=== PATIENT | female | born 1995 | race American Indian/Alaskan Native ===

== ENCOUNTER 2018-07-25 13:03 | Emergency (ER) | payer SELFPAY ==
[2018-07-25 13:45] VITALS: BP 105/57
--- NOTE | 2018-07-25 14:36 | Emergency Department Report ---
ED HPI - General Chief complaint: Urogenital-Female Stated complaint: LOWER BACK/LEG PAIN Time Seen by Provider: 07/25/18 14:12 Source: patient Mode of arrival: Ambulatory Limitations: No Limitations - History of Present Illness Initial comments: This is a 23-year-old female nontoxic, well nourished in appearance, no acute signs of distress presents to the ED with c/o of vaginal bleeding x1 day. Patient stated yesterday she noticed some spotting this morning x3 occasions and primarily only when she wipes after the restroom. Patient denies any abdominal or pelvic pain. Patient also stated has some vaginal irritation. Patient denies any vaginal discharge or foul odor. Patient denies any nausea, vomiting, chest pain, shortness of breathe, fever, chills, headache, stiff neck , numbness, tingling. Patient denies any urinary symptoms. Patient denies any allergies or PMH. MD Complaint: vaginal bleeding -: days(s) (1) Radiation: none Severity scale (0 -10): 0 Improves with: none Worsens with: none Associated symptoms: vaginal bleeding. denies: nausea/vomiting, vaginal discharge, abdominal pain, dysuria, headache, vision changes, malaise, dysparuenia, rash, seizure, shortness of breath, syncope, weakness Vaginal bleeding: light Pre-thiago care: none - Related Data Previous Rx's Medication Instructions Recorded Last Taken Type metroNIDAZOLE [Flagyl] 500 mg PO Q12HR #14 tab 07/25/18 Unknown Rx Allergies Allergy/AdvReac Type Severity Reaction Status Date / Time No Known Allergies Allergy Verified 07/25/18 13:41 ED Review of Systems ROS: Stated complaint: LOWER BACK/LEG PAIN Other details as noted in HPI Constitutional: denies: chills, fever Eyes: denies: eye pain, eye discharge, vision change ENT: denies: ear pain, throat pain Respiratory: denies: cough, shortness of breath, wheezing Cardiovascular: denies: chest pain, palpitations Endocrine: no symptoms reported Gastrointestinal: denies: abdominal pain, nausea, diarrhea Genitourinary: abnormal menses. denies: urgency, dysuria, discharge Musculoskeletal: denies: back pain, joint swelling, arthralgia Skin: denies: rash, lesions Neurological: denies: headache, weakness, paresthesias Psychiatric: denies: anxiety, depression Hematological/Lymphatic: denies: easy bleeding, easy bruising ED Past Medical Hx - Past Medical History Hx Seizures: Yes - Surgical History Past Surgical History?: No - Social History Smoking Status: Never Smoker Substance Use Type: None - Medications Home Medications: Home Medications Medication Instructions Recorded Confirmed Last Taken Type metroNIDAZOLE [Flagyl] 500 mg PO Q12HR #14 tab 07/25/18 Unknown Rx ED Physical Exam - General Limitations: No Limitations General appearance: alert, in no apparent distress - Head Head exam: Present: atraumatic, normocephalic - Eye Eye exam: Present: normal appearance - ENT ENT exam: Present: mucous membranes moist - Neck Neck exam: Present: normal inspection, full ROM. Absent: tenderness, meningismus - Respiratory Respiratory exam: Present: normal lung sounds bilaterally. Absent: respiratory distress, wheezes, rales, rhonchi, stridor, chest wall tenderness, accessory muscle use, decreased breath sounds, prolonged expiratory - Cardiovascular Cardiovascular Exam: Present: regular rate, normal rhythm, normal heart sounds. Absent: bradycardia, tachycardia, irregular rhythm, systolic murmur, diastolic murmur, rubs, gallop - GI/Abdominal GI/Abdominal exam: Present: soft, normal bowel sounds. Absent: distended, tenderness, guarding, rebound, rigid, diminished bowel sounds - External exam: Present: normal external exam, other (type photography supervisor Katlyn photo manager present on exam). Absent: erythema, swelling, lesions, lacerations, ecchymosis, bleeding Speculum exam: Present: normal speculum exam, other (OS closed. type photography supervisor Katlyn photo manager present on exam). Absent: erythema, vaginal discharge, cervical discharge, vaginal bleeding, foreign body, tissue, laceration Bi-manual exam: Present: normal bi-manual exam, other (type photography supervisor Katlyn photo manager present on exam). Absent: cervical motion tendernes, adnexal tenderness, adnexal mass, uterine enlargement, uterine tenderness - Extremities Exam Extremities exam: Present: normal inspection, full ROM, normal capillary refill. Absent: tenderness - Back Exam Back exam: Present: normal inspection, full ROM. Absent: tenderness, CVA tenderness (R), CVA tenderness (L), muscle spasm, paraspinal tenderness, vertebral tenderness - Neurological Exam Neurological exam: Present: alert, oriented X3 - Psychiatric Psychiatric exam: Present: normal affect, normal mood - Skin Skin exam: Present: warm, dry, intact, normal color. Absent: rash ED Course Vital Signs 07/25/18 13:41 Temperature 98.4 F Pulse Rate 80 Respiratory 16 Rate Blood Pressure 105/57 O2 Sat by Pulse 96 Oximetry - Reevaluation(s) Reevaluation #1: 07/25/18 14:39 Patient is speaking in full sentences with no signs of distress noted. ED Medical Decision Making - Lab Data Result diagrams: 07/25/18 14:31 - Medical Decision Making This is a 23-year-old female presents with threatened miscarriage and BV. Patient is stable and was examined by me. Normal abdominal exam. US OB obtained and dictated by the radiologist. Ua obtained. Quantative serum test obtained. Patient notified of the US report with no questions noted by the patient. RH factor positive. Labs within normal limits. Patient was referred to Follow-up with a HOME STEREO EQUIPMENT INSTALLER in 3-5 days or if symptoms worsen and continue return to emergency room as soon as possible. At time of discharge, the patient does not seem toxic or ill in appearance. No acute signs of distress noted. Patient agrees to discharge treatment plan of care. No further questions noted by the patient. Critical care attestation.: If time is entered above; I have spent that time in minutes in the direct care of this critically ill patient, excluding procedure time. ED Disposition Clinical Impression: Bacterial vaginosis, Threatened miscarriage Disposition: DC-01 TO HOME OR SELFCARE Is pt being admited?: No Does the pt Need Aspirin: No Condition: Stable Instructions: Bacterial Vaginosis (ED), Threatened Miscarriage (ED), Metronidazole (By mouth) Additional Instructions: Follow-up with a HOME STEREO EQUIPMENT INSTALLER doctor in 3-5 days or if symptoms worsen and continue return to emergency room as soon as possible. Prescriptions: metroNIDAZOLE [Flagyl] 500 mg PO Q12HR #14 tab Referrals: PRIMARY CARE, [Primary Care Provider] - 3-5 Days Forms: Work/School Release Form(ED)
[2018-07-25 14:43] LABS: Basophils % (Auto) 0.6 % (0.0-1.8); Eosinophils # (Auto) 0.2 K/mm3 (0.0-0.4); Eosinophils % (Auto) 2.1 % (0.0-4.3); Hematocrit 37.3 % (30.3-42.9); Hemoglobin 12.4 gm/dl (10.1-14.3); Lymphocytes # (Auto) 2.5 K/mm3 (1.2-5.4); Lymphocytes % (Auto) 31.4 % (13.4-35.0); Mean Corpuscular HGB Conc 33 % (30-34); Mean Corpuscular Hemoglobin 32 pg (28-32); Mean Corpuscular Volume 96 fl (79-97); Monocytes # (Auto) 0.5 K/mm3 (0.0-0.8); Monocytes % (Auto) 5.7 % (0.0-7.3); Platelet Count 295 K/mm3 (140-440); Red Blood Count 3.88 M/mm3 (3.65-5.03); Red Cell Distribution Width 13.7 % (13.2-15.2)
[2018-07-25 15:50] LABS: Bacteria,Urine 1+ /HPF (Negative); Bilirubin,Urine NEG (Negative); Blood,Urine NEG (Negative); Color,Urine Yellow (Yellow); Mucus,Urine 3+ /HPF
--- NOTE | 2018-07-25 16:50 | Ultrasound Report ---
FINAL REPORT EXAM: US OB < = 14 WEEKS FETUS HISTORY: vaginal bleeding COMPARISON: None. TECHNIQUE: Transabdominal obstetric imaging was performed FINDINGS: The uterus measures 11 x 6.1 x 6.8 centimeters. There is a single live intrauterine with with heart rate of 159 beats per minute. There is a normal appearing yolk sac dot, gestational sac, and pole. The crown-rump length is 13.7 millimeters, corresponding to a gestational age of 7 weeks, 5 days, with estimated date of delivery of 03/08/2019. There is a small to moderate subchorionic hemorrhage that measures approximately 1.2 x 0.8 x 1.5 centimeters. The right ovary measures 3.1 x 2.1 x 3.6 centimeters. There is a mildly complex within the right ovary that measures 1.3 centimeters with a single internal septation. The left ovary measures 2.4 x 1.1 x 1.9 centimeters dot IMPRESSION: Single live intrauterine with gestational age of 7 weeks, 5 days, with estimated date of delivery of 03/08/2019. Small to moderate subchorionic hemorrhage. Mildly complex cyst within the right ovary with a single internal septation. Findings may represent hemorrhagic cyst.
--- NOTE | 2018-07-25 16:51 | Ultrasound Report ---
FINAL REPORT EXAM: US OB TRANSVAGINAL HISTORY: vaginal bleeding COMPARISON: None. TECHNIQUE: Transvaginal obstetric imaging of the pelvis was performed FINDINGS: The uterus measures 11 x 6.1 x 6.8 centimeters. There is a single live intrauterine with with heart rate of 159 beats per minute. There is a normal appearing yolk sac dot, gestational sac, and pole. The crown-rump length is 13.7 millimeters, corresponding to a gestational age of 7 weeks, 5 days, with estimated date of delivery of 03/08/2019. There is a small to moderate subchorionic hemorrhage that measures approximately 1.2 x 0.8 x 1.5 centimeters. The right ovary measures 3.1 x 2.1 x 3.6 centimeters. There is a mildly complex within the right ovary that measures 1.3 centimeters with a single internal septation. The left ovary measures 2.4 x 1.1 x 1.9 centimeters. IMPRESSION: Single live intrauterine with gestational age of 7 weeks, 5 days, with estimated date of delivery of 03/08/2019. Small to moderate subchorionic hemorrhage. Mildly complex cyst within the right ovary with a single internal septation. Findings may represent hemorrhagic cyst.
== END 2018-07-25 17:07 | disposition home or self-care (01) ==
LOC: ED 13:03
DX: O20.0 Threatened abortion (principal); O23.591 Infection of other part of genital tract in pregnancy, first trimester; B96.89 Other specified bacterial agents as the cause of diseases classified elsewhere; Z3A.01 Less than 8 weeks gestation of pregnancy
CPT/HCPCS: 36415; 76801; 76817; 81001; 84702; 85025; 86850; 86900; 86901; 87210; 99284

== ENCOUNTER 2018-12-07 16:25 | Outpatient (CLI) | payer OTHER ==
[2018-12-07] MEDS ORDERED: LACTATED RINGERS 500 ML IV ONE (16:54)
[2018-12-07 19:12] VITALS: BP 99/57
[2018-12-07 19:20] LABS: Bacteria,Urine 1+ /HPF (Negative); Bilirubin,Urine NEG (Negative); Blood,Urine MOD (Negative); Color,Urine Yellow (Yellow); Mucus,Urine 2+ /HPF; Protein,Urine <15 mg/dL mg/dL (Negative)
[2018-12-07] MEDS ORDERED: ROCEPHIN/NS 1 GM/50 ML 1 GM/50 ML BAG IV ONE (21:39)
[2018-12-07] MEDS ORDERED: LACTATED RINGERS 1,000 ML ONE (21:51)
--- NOTE | 2018-12-07 22:51 | Ultrasound Report ---
FINAL REPORT PROCEDURE: US OB LIMITED TECHNIQUE: Real-time limited sonographic examination was performed for evaluation of position and amniotic fluid index for each fetus with image documentation (1 or more fetuses). CPT 16723 HISTORY: variable COMPARISON: No prior studies are available for comparison. FINDINGS: There is a single living intrauterine gestation currently in the breech presentation with heart rate of 154 beats per minute. Subjectively the amount of amniotic fluid appears increased. The amnio tic fluid index is also increased measuring 33.4 centimeters. Detailed exam of the anatomy was not performed as this was not requested. No gross abnormalities were identified on the images provide d. Cervix length was not measured. IMPRESSION: Limited study shows single living intrauterine gestation breech presentation. There is evidence of po lyhydramnios. Further evaluation was neither requested nor performed.
--- NOTE | 2018-12-08 00:50 | Progress Note ---
Assessment and Plan A: at 26 weeks, 6 days gestation. Moderate polyhydramnios. Common cold likely (flu swab negative). UTI. Blood glucose 99. P: IV Rocephin given. Rx Macrobid 100 mg po BID x 7 days. Discussed polyhydramnios with patient, need to follow up with [facility] (pt. already sees them due to history of epilepsy); advised pt. to go to [facility] this week and obtain referral to [facility] for polyhydramnios. Advised pt. to avoid sodas, sweet tea, sugary foods. Disussed with pt. possible side effects of medication. Warning signs discussed with pt. Discussed OTC medications that she can take for common cold symptom relief. Comfort measures discussed. Pt. voiced understanding of all instructions. Subjective - Subjective Date of service: 12/07/18 Principal diagnosis: at 26 weeks, 6 days gestation; cold Interval history: 23 year old presents to L&D triage at 26 weeks, 6 days gestation complaining of cold symptoms for past 2 days. Patient denies fever, chills, body aches, or sore throat. She does report nasal discharge, nose bleed, cough. Patient reports round ligament pain when standing and walking; states pain resolves when she lies down. Patient denies contractions, leaking of fluid, or vaginal bleeding. She denies falls or abdominal trauma. Patient reports active movement. She does report urinary frequency and low back ache. She denies flank pain. Patient reports: movement normal, no loss of fluid, no vaginal bleeding, no contractions Objective - Vital Signs Vital Signs: Vital Signs - 12hr 12/07/18 12/07/18 12/07/18 16:52 16:58 19:12 Temperature 98.6 F Pulse Rate 82 82 87 Respiratory 20 Rate Blood Pressure 101/59 99/57 Blood Pressure 101/59 [Left] - Exam Narrative Exam: KATHIE 33.4 cm on US. Abdomen: Present: normal appearance, soft. Absent: distention, tenderness, guarding, rigidity Uterus: Present: fundal height above umbilicus. Absent: tenderness FHR: other (AGA, a few variable FHR decelerations noted) Uterine Contraction Monitor Mode: External Uterine Contraction Pattern: Absent Extremities: normal - Labs Labs: Laboratory Results - last 24 hr 12/07/18 12/07/18 17:40 18:00 Urine Color Yellow Urine Turbidity Clear Urine pH 6.0 Ur Specific [place] 1.024 Urine Protein <15 mg/dl Urine Glucose (UA) Neg Urine Ketones Neg Urine Blood Mod Urine Nitrite Neg Urine Bilirubin Neg Urine Urobilinogen 4.0 Ur Leukocyte Esterase Tr Urine WBC (Auto) 5.0 Urine RBC (Auto) 2.0 U Epithel Cells (Auto) 4.0 Urine Bacteria (Auto) 1+ Urine Mucus 2+ Influenza A (Rapid) Negative Influenza B (Rapid) Negative
== END 2018-12-07 23:00 | disposition home or self-care (01) ==
LOC: TRG 16:25
PROVIDERS: ATTEND Obstetrics & Gynecology
DX: O21.2 Late vomiting of pregnancy (principal); O32.1XX0 Maternal care for breech presentation, not applicable or unspecified; O40.2XX0 Polyhydramnios, second trimester, not applicable or unspecified; O99.512 Diseases of the respiratory system complicating pregnancy, second trimester; J00 Acute nasopharyngitis [common cold]; O26.892 Other specified pregnancy related conditions, second trimester; R04.0 Epistaxis; R10.9 Unspecified abdominal pain; Z3A.26 26 weeks gestation of pregnancy
CPT/HCPCS: 76815; 81001; 82962; 87400; 96365; J0696; J7120; 96360

== ENCOUNTER 2019-02-21 01:21 | Inpatient (IN) | payer OTHER ==
[2019-02-21] MEDS ORDERED: LACTATED RINGERS 1,000 ML ONE (04:16)
[2019-02-21 10:00] LABS: Hematocrit 44.9 % (30.3-42.9); Hemoglobin 14.9 gm/dl (10.1-14.3); Mean Corpuscular HGB Conc 33 % (30-34); Mean Corpuscular Volume 98 fl (79-97); Platelet Count 173 K/mm3 (140-440); Red Blood Count 4.58 M/mm3 (3.65-5.03); Red Cell Distribution Width 13.9 % (13.2-15.2)
[2019-02-21] MEDS ORDERED: SUBLIMAZE IV PRN (10:50)
[2019-02-21] MEDS ORDERED: BRETHINE SUB-Q PRN (10:50)
[2019-02-21] MEDS ORDERED: BRETHINE IVP PRN (10:50)
[2019-02-21] MEDS ORDERED: XYLOCAINE 2% INFILTRATI ONE (10:50)
[2019-02-21] MEDS ORDERED: ZOFRAN IV PRN (10:50)
[2019-02-21] MEDS ORDERED: NARCAN 0.4 MG/1 ML IV PRN (10:50)
[2019-02-21] MEDS ORDERED: PITOCin/NS 20 UNIT/1000ML DRIP 20 UNITS/1,000 ML BAG IV SCH (11:00)
--- NOTE | 2019-02-21 11:15 | History and Physical Report ---
History of Present Illness Date of examination: 02/21/19 Date of admission: 02/21/19 05:32 Chief complaint: Intense contractions History of present illness: 24yo AA Fe , TYREL 03/10/2019 (LMP), 37 weeks 4days, presents with intense labor pains. Pt initiated care with [facility] Le[facility] Inspector at 13+ weeks gestation. Co- managed with [facility] d/t known Hx Epilepsy, no current meds, last seizure 10/18/18. Pt didn't keep Neuro consult "d/t insurance." otherwise complicated with Vitamin D Deficiency (D3 supplementation), LSIL PAP (plan to repeat PP), U TI (SELVIN Neg 01/04/19), Polyhydramnios 01/15 26cm). labs: A positive, Rubella Immune, VDRL Non-reactive, HBsAg Negative, HIV Negative, GC/CL/Trich Negative, GBS Negative. 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 denies: chlamydia, gonorrhea, hepatitis B, hepatitis C, herpes, HIV, syphilis, trichomonas Family/Genetic History: heart disease, hypertension Social history: single, lives with family, full code. denies: smoking, alcohol abuse, prescription drug abuse, IV drug use - Obstetrical History Expected Date of Delivery: 03/10/19 Actual Gestation: 37 Week(s) 4 Day(s) : 3 Para: 1 Hx # Term Pregnancies: 1 Number of Pregnancies: 0 Spontaneous Abortions: 0 Induced : 1 Number of Living Children: 1 #1 Gender: Female year: 2[age][birth year] Birthweight: 3.459 kg Method of Delivery: Vaginal Gestational age at delivery: 40 Complications: none Medications and Allergies Allergies Allergy/AdvReac Type Severity Reaction Status Date / Time pineapple AdvReac Itching Verified 08/03/18 08:33 Home Medications Medication Instructions Recorded Confirmed Last Taken Type Folic Acid [Folvite] 1 mg PO QDAY #30 tablet 10/18/18 02/21/19 Unknown Rx Review of Systems Eyes: normal appearance Cardiovascular: no chest pain, no shortness of breath Respiratory: no shortness of breath Breasts: normal Gastrointestinal: no nausea, no vomiting, no diarrhea, no constipation Genitourinary: normal appearance, contractions, no vaginal bleeding, no leakage of fluid, no genital sores Integumentary: no rash, no sores, no lesions - Vital Signs Vital signs: Vital Signs Temp Resp 98.6 F 20 02/21/19 04:01 02/21/19 04:01 Temp Pulse Resp BP Pulse Ox 98.4 F 89 18 110/59 97 02/21/19 08:16 02/21/19 10:44 02/21/19 06:30 02/21/19 10:44 02/21/19 06:30 - Physical Exam Breasts: Positive: normal Cardiovascular: Regular rate, Normal S1, Normal S2, No murmurs Lungs: Positive: Clear to auscultation, Normal air movement Abdomen: Positive: normal appearance, soft, normal bowel sounds. Negative: distention, tenderness Genitourinary (Female): Positive: normal external genitalia, normal perenium Vulva: both: normal Vagina: Positive: normal moisture Uterus: Positive: enlarged (Gravid) Anus/Rectum: Positive: normal perianal skin Extremities: Positive: normal Deep Tendon Reflex Grade: Normal +2 - Obstetrical FHR: category 1 Uterine Contraction Monitor Mode: External Cervical Dilatation: 5 (AROM small amt clear fluid with exam) Cervical Effacement Percentage: 75 station: -2 Uterine Tone Measurement Phase: Resting Uterine Contraction Intensity: Moderate Results Result Diagrams: 02/21/19 Unknown Abnormal lab results 02/21/19 Range/Units Unknown Hgb 14.9 H (10.1-14.3) gm/dl Hct 44.9 H (30.3-42.9) % MCV 98 H (79-97) fl MCH 33 H (28-32) pg All other labs normal. Assessment and Plan A: IUP at 37w4d Category 1 tracing GBS Negative Advanced dilatation P: Admit to L&D; Routine labor orders Pitocin augmentation May have IV pain med/epidural PRN Anticipate
[2019-02-21] MEDS: LACTATED RINGERS 1,000 ML IV SCH ×3 (11:25→16:39)
[2019-02-21] MEDS: PITOCin/NS 30 UNIT/500ML 30 UNITS/500 ML BAG IV SCH ×2 (11:28→12:52)
[2019-02-21 11:33] LABS: Anisocytosis 1+; Band Neutrophils # (Manual) 0.1 K/mm3; Burr Cells 3+; Platelet Estimate Consistent w Auto; Poikilocytosis 3+; Total Cells Counted 100
--- NOTE | 2019-02-21 15:41 | Anesthesia Consultation ---
Anesthesia Consult and Med Hx - Airway Anesthetic Teeth Evaluation: Good ROM Head & Neck: Adequate Mental/Hyoid Distance: Adequate Mallampati Class: Class I Intubation Access Assessment: Good - Pulmonary Exam CTA: Yes - Cardiac Exam Cardiac Exam: RRR - Pre-Operative Health Status ASA Pre-Surgery Classification: ASA2 Proposed Anesthetic Plan: Epidural - Pulmonary Hx Smoking: No Hx Asthma: No COPD: No Hx Pneumonia: No - Cardiovascular System Hx Hypertension: No - Central Nervous System Hx Seizures: Yes (epilepsy October 18) Hx Psychiatric Problems: No - Endocrine Hx Renal Disease: No Hx End Stage Renal Disease: No Hx Hypothyroidism: No Hx Hyperthyroidism: No - Hematic Hx Anemia: No Hx Sickle Cell Disease: No - Other Systems Hx Alcohol Use: Yes (social drinker not when preg)
[2019-02-21] MEDS ORDERED: NARCAN 2 MG/2 ML IV PRN (15:42)
--- NOTE | 2019-02-21 15:42 | Anesthesia Day of Surgery ---
Anesthesia Day of Surgery - Day of Surgery Patient Examined: Yes Patient H&P Reviewed: Yes Patient is NPO: Yes Beta Blockers: No Cardiac Clearance: No Pulmonary Clearance: No Rashawn's Test: N/A
[2019-02-21] MEDS ORDERED: MARCAINE 0.25% INFILTRATI ONE (15:46)
[2019-02-21] MEDS ORDERED: fentaNYL-BUPIV 2 MCG/ML-0.125% 200 MCG/100 ML BAG EPIDURAL SCH (16:00)
[2019-02-21] MEDS ORDERED: NACL 0.9% 1000 ML 1,000 ML ONE (17:31)
--- NOTE | 2019-02-21 17:36 | Progress Note ---
Assessment and Plan A: IUP at 37w4d GBS Negative Category 2 tracing; Repetitive variables Pitocin off Comfortable with epidural Minimal change in cervix since am OP and asynclitic presentation Dysfunctional uterine contraction pattern P: Continue routine labor orders Amnio Infusion Notify Dr. Katherine MD of POC Explained to pt and her family: Minimal cervical change with reoccurring variables and dysfunctional contractions. Will attempt amnio infusion to resolve variables and be able to resume pitocin. If baby doesn't tolerate then she will need a primary section. Pt and family verbalize understanding and are agreeable to POC. Subjective - Subjective Date of service: 02/21/19 (17:17) Principal diagnosis: Active labor Interval history: 24yo AA Fe , TYERL 03/10/2019 (LMP), 37 weeks 4days, presents with intense labor pains. Pt initiated care with [facility] [employer] [facility] at 13+ weeks gestation. Co- managed with [facility] d/t known Hx Epilepsy, no current meds, last seizure 10/18/18. Pt didn't keep Neuro consult "d/t insurance." otherwise complicated with Vitamin D Deficiency (D3 supplementation), LSIL PAP (plan to repeat PP), UTI (SELVIN Neg 01/04/19), Polyhydramnios 01/15 26cm). labs: A positive, Rubella Immune, VDRL Non-reactive, HBsAg Negative, HIV Negative, GC/CL/Trich Negative, GBS Negative. Patient reports: loss of fluid, movement normal, other (comfortable with epidural) Objective - Vital Signs Vital Signs: Vital Signs - 12hr 02/21/19 02/21/19 02/21/19 06:30 08:14 08:16 Temperature 97.3 F L 98.4 F Pulse Rate 113 H 80 Respiratory 18 Rate Blood Pressure 183/125 82/46 Blood Pressure 104/58 [Right] O2 Sat by Pulse 97 Oximetry 02/21/19 02/21/19 02/21/19 10:44 12:15 12:44 Temperature Pulse Rate 89 75 108 H Respiratory Rate Blood Pressure 110/59 88/49 98/55 Blood Pressure [Right] O2 Sat by Pulse Oximetry 02/21/19 02/21/19 02/21/19 13:17 14:02 14:16 Temperature 99.1 F Pulse Rate 99 H 93 H Respiratory Rate Blood Pressure 93/59 92/51 Blood Pressure [Right] O2 Sat by Pulse Oximetry 02/21/19 02/21/19 02/21/19 14:45 15:15 15:46 Temperature Pulse Rate 86 82 107 H Respiratory Rate Blood Pressure 96/50 110/54 Blood Pressure [Right] O2 Sat by Pulse 92 Oximetry 02/21/19 02/21/19 02/21/19 15:48 15:49 15:51 Temperature Pulse Rate 88 115 H 99 H Respiratory Rate Blood Pressure 114/58 113/62 118/65 Blood Pressure [Right] O2 Sat by Pulse 100 Oximetry 02/21/19 02/21/19 02/21/19 15:53 15:55 15:56 Temperature Pulse Rate 110 H 116 H 121 H Respiratory Rate Blood Pressure 130/69 124/68 Blood Pressure [Right] O2 Sat by Pulse 99 Oximetry 02/21/19 02/21/19 02/21/19 15:58 16:00 16:01 Temperature Pulse Rate 111 H 104 H 76 Respiratory Rate Blood Pressure 118/56 116/64 Blood Pressure [Right] O2 Sat by Pulse 100 Oximetry 02/21/19 02/21/19 02/21/19 16:02 16:04 16:05 Temperature Pulse Rate 86 75 88 Respiratory Rate Blood Pressure 113/55 111/57 101/55 Blood Pressure [Right] O2 Sat by Pulse Oximetry 02/21/19 02/21/19 02/21/19 16:07 16:10 16:11 Temperature Pulse Rate 80 92 H 76 Respiratory Rate Blood Pressure 94/50 103/57 95/51 Blood Pressure [Right] O2 Sat by Pulse Oximetry 02/21/19 02/21/19 02/21/19 16:13 16:15 16:17 Temperature Pulse Rate 80 93 H 85 Respiratory Rate Blood Pressure 88/53 100/59 98/51 Blood Pressure [Right] O2 Sat by Pulse Oximetry 02/21/19 02/21/19 02/21/19 16:19 16:22 16:24 Temperature Pulse Rate 85 84 79 Respiratory Rate Blood Pressure 100/55 99/54 84/51 Blood Pressure [Right] O2 Sat by Pulse Oximetry 02/21/19 02/21/19 02/21/19 16:26 16:33 16:35 Temperature Pulse Rate 104 H 96 H 82 Respiratory Rate Blood Pressure 137/59 87/52 89/51 Blood Pressure [Right] O2 Sat by Pulse Oximetry 02/21/19 02/21/19 02/21/19 16:53 17:08 17:21 Temperature Pulse Rate 83 76 118 H Respiratory Rate Blood Pressure 99/51 96/50 96/51 Blood Pressure [Right] O2 Sat by Pulse Oximetry - Exam Cardiovascular: Regular rate, Normal S1, Normal S2, No murmurs Lungs: Clear to auscultation, Normal air movement Abdomen: Present: normal appearance, soft, normal bowel sounds. Absent: distention Vulva: both: normal Uterus: Present: other (Gravid) FHR: category 2 FHR comments: repetitive variables noted with each contraction Uterine Contraction Monitor Mode: External Cervical Dilatation: 6 (IUPC inserted in gentle fashion, small amt clear fluid noted with exam. Fetus OP and asynclitic) Cervical Effacement Percentage: 70 station: -2 Uterine Contraction Frequency (min): 2-8 Uterine Contraction Duration: 60-120 Uterine Contraction Pattern: Irregular Uterine Tone Measurement Phase: Resting Uterine Contraction Intensity: Moderate Extremities: normal Deep Tendon Reflex Grade: Normal +2 - Labs Labs: Abnormal Labs 02/21/19 Unknown Hgb 14.9 H Hct 44.9 H MCV 98 H MCH 33 H Laboratory Results - last 24 hr 02/21/19 02/21/19 02/21/19 08:05 10:02 Unknown WBC 5.6 RBC 4.58 Hgb 14.9 H Hct 44.9 H MCV 98 H MCH 33 H MCHC 33 RDW 13.9 Plt Count 173 Add Manual Diff Complete Total Counted 100 Seg Neuts % (Manual) 61.0 Band Neutrophils % 1.0 Lymphocytes % (Manual) 32.0 Reactive Lymphs % (Man) 0 Monocytes % (Manual) 4.0 Eosinophils % (Manual) 1.0 Basophils % (Manual) 1.0 Metamyelocytes % 0 Myelocytes % 0 Promyelocytes % 0 Blast Cells % 0 Nucleated RBC % Not Reportable Seg Neutrophils # Man 3.4 Band Neutrophils # 0.1 Lymphocytes # (Manual) 1.8 Abs React Lymphs (Man) 0.0 Monocytes # (Manual) 0.2 Eosinophils # (Manual) 0.1 Basophils # (Manual) 0.1 Metamyelocytes # 0.0 Myelocytes # 0.0 Promyelocytes # 0.0 Blast Cells # 0.0 WBC Morphology Not Reportable Hypersegmented Neuts Not Reportable Hyposegmented Neuts Not Reportable Hypogranular Neuts Not Reportable Smudge Cells Not Reportable Toxic Granulation Not Reportable Toxic Vacuolation Not Reportable Dohle Bodies Not Reportable Pelger-Huet Anomaly Not Reportable She Rods Not Reportable Platelet Estimate Consistent w auto Clumped Platelets Not Reportable Plt Clumps, EDTA Not Reportable Large Platelets Not Reportable Giant Platelets Not Reportable Platelet Satelliting Not Reportable Plt Morphology Comment Not Reportable RBC Morphology Not Reportable Dimorphic RBCs Not Reportable Polychromasia Not Reportable Hypochromasia Not Reportable Poikilocytosis 3+ Anisocytosis 1+ Microcytosis Not Reportable Macrocytosis Not Reportable Spherocytes Not Reportable Pappenheimer Bodies Not Reportable Sickle Cells Not Reportable Target Cells Not Reportable Tear Drop Cells Not Reportable Ovalocytes Not Reportable Helmet Cells Not Reportable Edwards-Tabor Bodies Not Reportable [place] Rings Not Reportable Lamont Cells 3+ Bite Cells Not Reportable Crenated Cell Not Reportable Elliptocytes Not Reportable Acanthocytes (Spur) Not Reportable Rouleaux Not Reportable Hemoglobin C Crystals Not Reportable Schistocytes Not Reportable Malaria parasites Not Reportable Ankur Bodies Not Reportable Hem Pathologist Commnt No RPR Nonreactive Blood Type A POSITIVE Antibody Screen Negative
[2019-02-21] MEDS ORDERED: NACL 0.9% 1000 ML 1,000 ML VG SCH (17:50)
--- NOTE | 2019-02-21 21:04 | Event Note ---
S- Patient is comfortable. Epidural in place. O- Last Vital Signs Temp 98.0 F 02/21/19 17:44 Pulse 133 H 02/21/19 20:52 Resp 18 02/21/19 06:30 BP 87/48 02/21/19 20:52 Pulse Ox 100 02/21/19 16:01 Cervix: 8/70/-1 Pitocin 7 MVUs >180 LR 125 A 24yo 37+weeks Pitocin augmentation Active labor Category I FHT - Category II resolved P Continue augmentation Anticipate
[2019-02-21] MEDS ORDERED: BENADRYL PO PRN (23:19)
[2019-02-21] MEDS ORDERED: PHENERGAN PO PRN (23:19)
[2019-02-21] MEDS ORDERED: TUCKS PAD TP PRN (23:19)
[2019-02-21] MEDS ORDERED: TYLENOL PO PRN (23:19)
[2019-02-21] MEDS ORDERED: DULCOLAX PR PRN (23:19)
[2019-02-21] MEDS ORDERED: LANSINOH TP PRN (23:19)
[2019-02-21] MEDS ORDERED: MILK OF MAGNESIA PO PRN (23:19)
--- NOTE | 2019-02-21 23:19 | Procedure Note ---
OB Delivery Note - Delivery Estimated blood loss: 100cc - Vaginal Delivery position: OA Delivery augmentation: pitocin Delivery monitor: internal FHT Route of delivery: Delivery placenta: spontaneous Episiotomy: none Delivery laceration: none Anesthesia: epidural Delivery comments: noted to spontaneously cry and placed on maternal abdomen. - A at 1 minute: 9 at 5 minutes: 9 Gender: Female (2822g 6lb 4oz)
[2019-02-21] MEDS ORDERED: SODIUM CHLORIDE FLUSH SYRINGE 10 ML IV NR (23:45)
[2019-02-22] MEDS: IBUPROFEN PO SCH ×3 (05:29→18:45)
--- NOTE | 2019-02-22 09:37 | Post Anesthesia Evaluation ---
- Post Anesthesia Evaluation Patient Participated: Yes Airway Patent: Yes Stable Respiratory Function: Yes Nausea/Vomiting: No Temp > 96.8F: Yes Pain Manageable: Yes Adequeate Hydration: Yes Anesthesia Complications: No Block Receding Appropriately: Yes Patient on Ventilator: No
[2019-02-22 11:11] LABS: Hematocrit 27.5 % (30.3-42.9); Hemoglobin 9.3 gm/dl (10.1-14.3)
--- NOTE | 2019-02-22 11:13 | Progress Note ---
Assessment and Plan A: PPD#1 s/p Bottlefeeding Stable P: Continue routine PP orders Discharge home in am Subjective - Subjective Date of service: 02/22/19 Principal diagnosis: PPD#1 s/p Interval history: See H&P and delivery note Patient reports: appetite normal, voiding normally, pain well controlled, flatus, ambulating normally, no bowel movement [place]: doing well, bottle feeding Objective - Vital Signs Latest vital signs: Vital Signs Temp Pulse Resp BP Pulse Ox 02/22/19 08:25 98.4 F 96 H 20 93/39 96 02/22/19 05:29 18 02/22/19 02:23 98.6 F 73 20 116/62 100 02/21/19 23:27 120 H 121/67 02/21/19 23:12 115 H 119/67 02/21/19 22:39 126 H 113/72 02/21/19 22:23 96 H 128/64 02/21/19 22:07 126 H 105/69 02/21/19 21:53 126 H 109/62 02/21/19 21:38 121 H 104/67 02/21/19 21:22 108 H 114/67 02/21/19 21:08 134 H 114/66 02/21/19 20:52 133 H 87/48 02/21/19 20:21 129 H 92/47 02/21/19 20:07 118 H 91/54 02/21/19 19:52 113 H 93/65 02/21/19 19:38 107 H 111/57 02/21/19 19:21 115 H 95/54 02/21/19 19:06 100 H 107/63 02/21/19 18:53 92 H 103/60 02/21/19 18:37 107 H 101/55 02/21/19 18:23 122 H 104/68 02/21/19 18:07 112 H 91/53 02/21/19 17:51 78 99/56 02/21/19 17:44 98.0 F 02/21/19 17:38 84 97/51 02/21/19 17:21 118 H 96/51 02/21/19 17:08 76 96/50 02/21/19 16:53 83 99/51 02/21/19 16:35 82 89/51 02/21/19 16:33 96 H 87/52 02/21/19 16:26 104 H 137/59 02/21/19 16:24 79 84/51 02/21/19 16:22 84 99/54 02/21/19 16:19 85 100/55 02/21/19 16:17 85 98/51 02/21/19 16:15 93 H 100/59 02/21/19 16:13 80 88/53 02/21/19 16:11 76 95/51 02/21/19 16:10 92 H 103/57 02/21/19 16:07 80 94/50 02/21/19 16:05 88 101/55 02/21/19 16:04 75 111/57 02/21/19 16:02 86 113/55 02/21/19 16:01 76 100 02/21/19 16:00 104 H 116/64 02/21/19 15:58 111 H 118/56 02/21/19 15:56 121 H 99 02/21/19 15:55 116 H 124/68 02/21/19 15:53 110 H 130/69 02/21/19 15:51 99 H 118/65 100 02/21/19 15:49 115 H 113/62 02/21/19 15:48 88 114/58 02/21/19 15:46 107 H 92 02/21/19 15:30 97.9 F 02/21/19 15:15 82 110/54 02/21/19 14:45 86 96/50 02/21/19 14:16 93 H 92/51 02/21/19 14:02 99 H 93/59 02/21/19 13:17 99.1 F 02/21/19 12:44 108 H 98/55 02/21/19 12:15 75 88/49 Intake and Output 02/21/19 02/22/19 02/22/19 23:59 07:59 15:59 Intake Total 1058.067 Output Total 421 158 2316 Balance 858.067 -250 -1050 Intake: IV 1058.067 Lactated Ringers 1,000 ml 1000 @ 125 mls/hr IV DIRECT TORRIE Rx#:[id number] PITOCin/NS 30 UNIT/500ML 58.067 30 units In 500 ml @ 4 mls/hr IV TITR TORRIE Rx#: [id number] Output: Urine 939 473 7580 Indwelling Catheter 200 1050 Uretheral (Bar) 250 Other: Total, Output Amount 200 1050 # Voids Indwelling Catheter 2 Estimated Blood Loss 100 - Exam Breasts: Present: normal Cardiovascular: Present: Regular rate, Normal S1, Normal S2, No murmurs Lungs: Present: Clear to auscultation, Normal air movement Abdomen: Present: normal appearance, soft, normal bowel sounds. Absent: distention Vulva: both: normal Uterus: Present: firm, fundal height below umbilicus (-1) Extremities: Present: normal Deep Tendon Reflex Grade: Normal +2
--- NOTE | 2019-02-22 11:14 | Discharge Summary ---
Providers - Providers Date of Admission: 02/21/19 05:32 Date of discharge: 02/22/19 Attending physician: DENNIS POLLOCK MD Primary care physician: DENNIS POLLOCK MD Hospitalization Reason for admission: active labor, IUP at term Delivery: Procedure details: See delivery note Episiotomy: none Laceration: none Other procedures: none complications: none Discharge diagnosis: IUP at term delivered [place] baby: female Condition at discharge: Good Disposition: DC-01 TO HOME OR SELFCARE Plan - Provider Discharge Summary Activity: routine, no sex for 6 weeks, no heavy lifting 4 weeks, no strenuous exercise Diet: routine Instructions: routine Additional instructions: [] Smoking cessation referral if applicable(refer to patient education folder for contact #) [] Refer to [facility] Booklet Call your doctor immediately for: * Fever > 100.5 * Heavy vaginal bleeding ( >1 pad per hour) * Severe persistent headache * Shortness of breath * Reddened, hot, painful area to leg or breast * Drainage or odor from incision. * Keep incision clean and dry at all times and follow doctor's instructions regarding bathing/showering - Follow up plan Follow up: DENNIS POLLOCK MD [Primary Care Provider] - 6 Weeks
[2019-02-23] MEDS: IBUPROFEN PO SCH ×3 (00:01→11:51)
[2019-02-23 15:49] VITALS: BP 97/52
== END 2019-02-23 15:45 | disposition home or self-care (01) | DRG 775 ==
LOC: TRG 01:21 → LD 05:32 → TRG 05:32 → LD 05:33 → OB 02-22 01:44
PROVIDERS: ADMIT Obstetrics & Gynecology; ATTEND Obstetrics & Gynecology
PROC: 10E0XZZ Delivery of Products of Conception, External Approach (ICD-10-PCS; principal; 2019-02-21)
PROC: 3E0R3BZ Introduction of Anesthetic Agent into Spinal Canal, Percutaneous Approach (ICD-10-PCS; 2019-02-21)
PROC: 00HU33Z Insertion of Infusion Device into Spinal Canal, Percutaneous Approach (ICD-10-PCS; 2019-02-21)
DX: O76 Abnormality in fetal heart rate and rhythm complicating labor and delivery (principal); Z3A.37 37 weeks gestation of pregnancy; Z37.0 Single live birth; Z91.018 Allergy to other foods
CPT/HCPCS: 36415; 85007; 85014; 85018; 85025; 86592; 86850; 86900; 86901; G0378; J2590; J3010; J7030; J7120

== ENCOUNTER 2019-05-29 04:39 | Observation (INO) | payer OTHER ==
[2019-05-29] MEDS ORDERED: ATIVAN IV ONE ×3 (05:05→11:46)
[2019-05-29] MEDS ORDERED: KEPPRA 1,000 MG in NACL 0.9% 100 ML IV ONE (05:05)
--- NOTE | 2019-05-29 05:10 | Emergency Department Report ---
Blank Doc - Documentation Documentation: 24-year-old female with presents to ED following a seizure at home. Sister cu rrently at bedside. Sister reports patient has had 2 seizures since 4 AM. Sister states patient has been noncompliant with her Keppra. Patient given 5 mg of Versed by EMS. Patient had a brief, tonic-clonic seizure here in the ED. She is currently postictal. Ativan 2 mg, Keppra 1000 mg ordered. Labs have been ordered. Vitals are normal. Patient is stable at this time and will be further evaluated by oncoming physician.
[2019-05-29] MEDS ORDERED: KEPPRA 1,000 MG/NS 0.75% 100ML 1,000 MG/100 ML BAG IV ONE ×2 (05:12)
[2019-05-29 05:43] LABS: Hemoglobin 12.3 gm/dl (10.1-14.3); Mean Corpuscular HGB Conc 33 % (30-34); Mean Corpuscular Volume 97 fl (79-97); Platelet Count 269 K/mm3 (140-440); Red Blood Count 3.84 M/mm3 (3.65-5.03)
[2019-05-29 05:55] LABS: BUN/Creatinine Ratio 24; Blood Urea Nitrogen 12 mg/dL (7-17); Calcium 9.3 mg/dL (8.4-10.2); Hemolysis Index 20
--- NOTE | 2019-05-29 10:54 | Emergency Department Report ---
ED Seizure HPI - General Chief Complaint: Seizure Stated Complaint: SEIZURE Time Seen by Provider: 05/29/19 06:05 Source: family, EMS (ems notes not available at time of chart dictation), RN notes reviewed, old records reviewed Mode of arrival: Stretcher Limitations: Other (the patient is postictal) - History of Present Illness Initial Comments: This is a 24-year-old female. The patient is currently presumably postictal and not able to provide history. History obtained from speaking to the patient's family, sister, and review of the medical record. Apparently, the patient had 2 seizures since 4:00 in the morning. The patient has reportedly been noncompliant with her antiepileptic drug medications. As for her sister, who is at the bedside, the seizure was generalized tonic-clonic and lasted for less than 1 minute. The patient was in bed and there was no antecedent trauma. Her sister reports that the patient was not having any other symptoms earlier on. Specifically, there was no combined of headache, neck pain, chest pain, abdomina l pain, shortness of breath or fevers or chills. Apparently, the patient had a brief tonic-clonic seizure here will here in the ER. She was found to be postictal, and she was given Ativan and Keppra. Patient still sleeping in stretcher, in no acute distress. MD Complaint: possible seizure -: Sudden Description of Episode: other Witnessed:: Yes Trauma: No Seizure History: known seizure disorder, history of non-compliance - Related Data Home Medications Medication Instructions Recorded Confirmed Last Taken No Known Home Medications [No 05/29/19 05/29/19 Unknown Reported Home Medications] Allergies Allergy/AdvReac Type Severity Reaction Status Date / Time onion AdvReac Itching Verified 02/22/19 08:36 pineapple AdvReac Itching Verified 08/03/18 08:33 ED Review of Systems ROS: Stated complaint: SEIZURE Other details as noted in HPI Comment: per family Cardiovascular: denies: chest pain, syncope Gastrointestinal: denies: vomiting Neurological: confusion ED Past Medical Hx - Past Medical History Hx Hypertension: No Hx Congestive Heart Failure: No Hx Diabetes: No Hx Deep Vein Thrombosis: No Hx Renal Disease: No Hx Sickle Cell Disease: No Hx Seizures: Yes (epilepsy October 18) Hx Asthma: No Hx COPD: No Hx HIV: No - Surgical History Past Surgical History?: No - Social History Smoking Status: Never Smoker Substance Use Type: None - Medications Home Medications: Home Medications Medication Instructions Recorded Confirmed Last Taken Type No Known Home Medications [No 05/29/19 05/29/19 Unknown History Reported Home Medications] ED Physical Exam - General Limitations: Other (patient postictal, sleepy in stretcher, and in no acute distress) General appearance: in no apparent distress (the patient is sleeping) - Head Head exam: Present: atraumatic, normocephalic - Eye Eye exam: Present: normal appearance, PERRL - ENT ENT exam: Present: normal exam, mucous membranes moist, normal external ear exam - Neck Neck exam: Present: normal inspection. Absent: tenderness, meningismus - Respiratory Respiratory exam: Present: normal lung sounds bilaterally. Absent: respiratory distress - Cardiovascular Cardiovascular Exam: Present: regular rate, normal rhythm, normal heart sounds. Absent: bradycardia, tachycardia, irregular rhythm, systolic murmur, diastolic murmur, rubs, gallop - GI/Abdominal GI/Abdominal exam: Present: soft. Absent: distended, tenderness, guarding, rebound, rigid, pulsatile mass - Extremities Exam Extremities exam: Present: normal inspection, other (2+ pulses noted in the bilateral upper, lower extremities. Compartments soft. No long bony tenderness. The pelvis is stable.). Absent: pedal edema, joint swelling, calf tenderness - Back Exam Back exam: Present: normal inspection. Absent: tenderness, CVA tenderness (R), CVA tenderness (L), paraspinal tenderness, vertebral tenderness - Neurological Exam Neurological exam: Present: altered (patient sleepy, minimally arousable, protecting airway. Detailed neurologic examination is not possible at this time secondary to postictal state) - Skin Skin exam: Present: warm, dry, intact, normal color. Absent: rash ED Course Vital Signs 05/29/19 05/29/19 05/29/19 04:42 04:43 04:45 Temperature 98.3 F Pulse Rate 77 75 77 Respiratory 16 15 16 Rate Blood Pressure 112/63 Blood Pressure 112/63 [Left] O2 Sat by Pulse 98 Oximetry 05/29/19 05/29/19 05/29/19 05:00 05:16 05:30 Temperature Pulse Rate 91 H 79 69 Respiratory 14 22 16 Rate Blood Pressure 112/63 112/63 98/53 Blood Pressure [Left] O2 Sat by Pulse 100 100 100 Oximetry 05/29/19 05/29/19 05/29/19 05:46 06:00 06:30 Temperature Pulse Rate 67 64 64 Respiratory 17 17 17 Rate Blood Pressure 112/63 99/55 102/60 Blood Pressure [Left] O2 Sat by Pulse 100 99 Oximetry 05/29/19 05/29/19 05/29/19 09:30 10:00 10:30 Temperature Pulse Rate 72 66 72 Respiratory 16 16 16 Rate Blood Pressure Blood Pressure 110/66 97/57 103/60 [Left] O2 Sat by Pulse 99 98 100 Oximetry 05/29/19 11:20 Temperature Pulse Rate 80 Respiratory 20 Rate Blood Pressure Blood Pressure 114/68 [Left] O2 Sat by Pulse 98 Oximetry - Reevaluation(s) Reevaluation #1: 05/29/19 10:53 Differential diagnosis, including but not limited to: Seizure, postictal state confusion Assessment and plan: 24-year-old female with reported history of seizures, reported history of medication noncompliance, documented tonic-clonic event while here in the ER, currently sedated, postictal, afebrile, with reassuring vital signs and protecting her airway. Patient has been postictal for a rather prolonged period of time. Screening laboratory studies ordered, CT scan of the brain ordered, urinalysis ordered. Family and friends at the bedside. Reevaluation #2: 05/29/19 11:35 Patient reportedly had a seizure in the [place]. It was nontraumatic and not witnessed by myself. Patient receives CAT scan of the brain. Patient back in room 19, has another generalized tonic-clonic event. Given 2 mg of Ativan 2, for a total dose of 4 mg. Patient is now again postictal, with no additional convulsive activity. We'll admit the patient to the medical service for close observation. The Hospital physician is paged at this time. I do not suspect subclinical status epilepticus at this time, as nursing team informs me that the patient didn't one point wake up, and ask for her baby, and then went back to sleep, prior to CT scan. Rather, I suspect recurrent seizures, secondary to medication noncompliance, and postictal state. Reevaluation #3: 05/29/19 11:59 Dr Conroy to admit Reevaluation #4: 05/29/19 15:21 CT scan of the brain interpreted as negative for acute disease. ED Medical Decision Making - Lab Data Result diagrams: 05/29/19 05:28 05/29/19 05:28 Vital Signs 05/29/19 05/29/19 05/29/19 04:42 04:43 04:45 Temperature 98.3 F Pulse Rate 77 75 77 Respiratory 16 15 16 Rate Blood Pressure 112/63 Blood Pressure 112/63 [Left] O2 Sat by Pulse 98 Oximetry 05/29/19 05/29/19 05/29/19 05:00 05:16 05:30 Temperature Pulse Rate 91 H 79 69 Respiratory 14 22 16 Rate Blood Pressure 112/63 112/63 98/53 Blood Pressure [Left] O2 Sat by Pulse 100 100 100 Oximetry 05/29/19 05/29/19 05/29/19 05:46 06:00 06:30 Temperature Pulse Rate 67 64 64 Respiratory 17 17 17 Rate Blood Pressure 112/63 99/55 102/60 Blood Pressure [Left] O2 Sat by Pulse 100 99 Oximetry Lab Results 05/29/19 05/29/19 05/29/19 Range/Units 05:28 05:28 05:28 WBC 6.5 (4.5-11.0) K/mm3 RBC 3.84 (3.65-5.03) M/mm3 Hgb 12.3 (10.1-14.3) gm/dl Hct 37.0 (30.3-42.9) % MCV 97 (79-97) fl MCH 32 (28-32) pg MCHC 33 (30-34) % RDW 14.0 (13.2-15.2) % Plt Count 269 (140-440) K/mm3 Sodium 141 (137-145) mmol/L Potassium 3.7 (3.6-5.0) mmol/L Chloride 104.9 (98-107) mmol/L Carbon Dioxide 23 (22-30) mmol/L Anion Gap 17 mmol/L BUN 12 (7-17) mg/dL Creatinine 0.5 L (0.7-1.2) mg/dL Estimated GFR > 60 ml/min BUN/Creatinine Ratio 24 % Glucose 93 (65-100) mg/dL POC Glucose (70-105) Calcium 9.3 (8.4-10.2) mg/dL HCG, Qual Negative (Negative) 05/29/19 Range/Units 09:11 WBC (4.5-11.0) K/mm3 RBC (3.65-5.03) M/mm3 Hgb (10.1-14.3) gm/dl Hct (30.3-42.9) % MCV (79-97) fl MCH (28-32) pg MCHC (30-34) % RDW (13.2-15.2) % Plt Count (140-440) K/mm3 Sodium (137-145) mmol/L Potassium (3.6-5.0) mmol/L Chloride (98-107) mmol/L Carbon Dioxide (22-30) mmol/L Anion Gap mmol/L BUN (7-17) mg/dL Creatinine (0.7-1.2) mg/dL Estimated GFR ml/min BUN/Creatinine Ratio % Glucose (65-100) mg/dL POC Glucose 91 (70-105) Calcium (8.4-10.2) mg/dL HCG, Qual (Negative) - Radiology Data Radiology results: pending Critical Care Time: Yes Critical care time in (mins) excluding proc time.: 35 Critical care attestation.: If time is entered above; I have spent that time in minutes in the direct care of this critically ill patient, excluding procedure time. ED Disposition Clinical Impression: Seizure, Post-ictal confusion Disposition: OP ADMIT IP TO THIS HOSP Is pt being admited?: Yes Condition: Fair
[2019-05-29] MEDS ORDERED: ATIVAN ONE ×2 (11:15→11:31)
[2019-05-29 11:57] LABS: Bilirubin,Urine NEG (Negative); Blood,Urine NEG (Negative); Color,Urine Yellow (Yellow); Mucus,Urine 2+ /HPF; Protein,Urine <15 mg/dL mg/dL (Negative)
[2019-05-29 13:04] LABS: Amphetamine Screen,Urine PRESUMPTIVE NEGATIVE; Cannabinoid Screen,Urine PRESUMPTIVE NEGATIVE; Cocaine Screen,Urine PRESUMPTIVE NEGATIVE; Methadone Screen,Urine PRESUMPTIVE NEGATIVE; Opiate Screen,Urine PRESUMPTIVE NEGATIVE
[2019-05-29 13:53] LABS: Benzodiazepines Screen,Urine PRESUMPTIVE POSITIVE
--- NOTE | 2019-05-29 14:25 | Cat Scan Report ---
CT HEAD WITHOUT CONTRAST INDICATION : Seizure. Prolonged postictal state. TECHNIQUE: Axial imaging performed from the skull apex through the skull base without the use of con trast. All CT scans at this location are performed using CT dose reduction for ALARA by means of aut omated exposure control. COMPARISON: None FINDINGS: Parenchyma: No acute intracranial hemorrhage or parenchymal abnormality. Ventricles: Ventricles are normal in size and appear symmetric. Bones: No acute osseous abnormality. Sinuses: Sinuses and mastoid air cells are clear. Soft tissues: Soft tissues including the orbits appear normal. IMPRESSION: Cranial CT scan within normal limits. Signer Name: Mohit Khoury Jr, MD Signed: 05/29/2019 2:21 PM Workstation Name: [id number]
--- NOTE | 2019-05-29 18:23 | History and Physical Report ---
History of Present Illness Date of examination: 05/29/19 Date of admission: 05/29/19 11:59 Chief complaint: Recurrent seizures since 4 AM History of present illness: 24 year old AAF with history of seizures comes in for recurrent seizures since 4 AM. Patient has stopped taking her Keppra because she is breast-feeding her baby who is now 3 months old. Patient had 2 seizures while at home and 3 seizures while in the emergency room. Seizures were tonic and clonic in nature lasting for about a minute. Altered sensorium for the seizures. No fever or chills. No precipitating factors except for noncompliance. Patient is willing to take Keppra and change the breast feeding to formula milk. No trauma. Past Medical History Seizures: Yes (epilepsy October 18) Surgical History Past Surgical History?: No Social History Smoking Status: Never Smoker Substance Use Type: None Family history Htn Medications Home Medications: Home Medications Medication Instructions Recorded Confirmed Last Taken Type No Known Home Medications [No 05/29/19 05/29/19 Unknown History Reported Home Medications] Review of Systems ROS: Stated complaint: SEIZURE Other details as noted in HPI Comment: per family Cardiovascular: denies: chest pain, syncope Gastrointestinal: denies: vomiting Neurological: confusion and recurrent seizures 14 point review of systems done and otherwise negative Medications and Allergies Allergies Allergy/AdvReac Type Severity Reaction Status Date / Time onion AdvReac Itching Verified 02/22/19 08:36 pineapple AdvReac Itching Verified 08/03/18 08:33 Home Medications Medication Instructions Recorded Confirmed Last Taken Type No Known Home Medications [No 05/29/19 05/29/19 Unknown History Reported Home Medications] Exam - Constitutional Vitals: Temp Pulse Resp BP Pulse Ox 97.9 F 68 18 116/67 100 05/29/19 14:28 05/29/19 14:28 05/29/19 14:28 05/29/19 14:28 05/29/19 14:28 General appearance: Present: no acute distress, well-nourished - EENT Eyes: Present: PERRL ENT: hearing intact, clear oral mucosa - Neck Neck: Present: supple, normal ROM - Respiratory Respiratory effort: normal Respiratory: bilateral: CTA - Cardiovascular Heart rate: 78 Rhythm: regular Heart Sounds: Present: S1 & S2. Absent: rub, click - Extremities Extremities: no ischemia, pulses intact, pulses symmetrical, No edema Peripheral Pulses: within normal limits - Abdominal General gastrointestinal: Present: soft, non-tender, non-distended, normal bowel sounds Female genitourinary: Present: normal - Rectal Rectal Exam: deferred - Integumentary Integumentary: Present: clear, warm, dry - Musculoskeletal Musculoskeletal: gait normal, strength equal bilaterally - Psychiatric Psychiatric: appropriate mood/affect, intact judgment & insight, agitated, depressed ( will) - Neurologic Neurologic: CNII-XII intact, moves all extremities - Allied Health Allied health notes reviewed: nursing, case management (we will) Results - Labs CBC & Chem 7: 05/29/19 05:28 05/29/19 05:28 Labs: Laboratory Last Values WBC 6.5 K/mm3 (4.5-11.0) 05/29/19 05:28 RBC 3.84 M/mm3 (3.65-5.03) 05/29/19 05:28 Hgb 12.3 gm/dl (10.1-14.3) 05/29/19 05:28 Hct 37.0 % (30.3-42.9) 05/29/19 05:28 MCV 97 fl (79-97) 05/29/19 05:28 MCH 32 pg (28-32) 05/29/19 05:28 MCHC 33 % (30-34) 05/29/19 05:28 RDW 14.0 % (13.2-15.2) 05/29/19 05:28 Plt Count 269 K/mm3 (140-440) 05/29/19 05:28 Sodium 141 mmol/L (137-145) 05/29/19 05:28 Potassium 3.7 mmol/L (3.6-5.0) 05/29/19 05:28 Chloride 104.9 mmol/L (98-107) 05/29/19 05:28 Carbon Dioxide 23 mmol/L (22-30) 05/29/19 05:28 17 mmol/L 05/29/19 05:28 BUN 12 mg/dL (7-17) 05/29/19 05:28 0.5 mg/dL (0.7-1.2) L 05/29/19 05:28 Estimated GFR > 60 ml/min 05/29/19 05:28 24 % 05/29/19 05:28 Glucose 93 mg/dL (65-100) 05/29/19 05:28 POC Glucose 91 (70-105) 05/29/19 09:11 Calcium 9.3 mg/dL (8.4-10.2) 05/29/19 05:28 50 units/L (30-135) 05/29/19 10:52 HCG, Qual Negative (Negative) 05/29/19 05:28 Yellow (Yellow) 05/29/19 11:45 Clear (Clear) 05/29/19 11:45 5.0 (5.0-7.0) 05/29/19 11:45 Ur Specific [place] 1.035 (1.003-1.030) H 05/29/19 11:45 <15 mg/dl mg/dL (Negative) 05/29/19 11:45 Neg mg/dL (Negative) 05/29/19 11:45 20 mg/dL (Negative) 05/29/19 11:45 Neg (Negative) 05/29/19 11:45 Neg (Negative) 05/29/19 11:45 Neg (Negative) 05/29/19 11:45 4.0 mg/dL (<2.0) 05/29/19 11:45 Ur Leukocyte Esterase Neg (Negative) 05/29/19 11:45 1.0 /HPF (0.0-6.0) 05/29/19 11:45 1.0 /HPF (0.0-6.0) 05/29/19 11:45 U Epithel Cells (Auto) < 1.0 /HPF (0-13.0) 05/29/19 11:45 2+ /HPF 05/29/19 11:45 Salicylates < 0.3 mg/dL (2.8-20.0) L 05/29/19 10:52 Presumptive negative 05/29/19 11:45 Presumptive negative 05/29/19 11:45 Acetaminophen < 5.0 ug/mL (10.0-30.0) L 05/29/19 10:52 Ur Barbiturates Screen Presumptive negative 05/29/19 11:45 Ur Phencyclidine Scrn Presumptive negative 05/29/19 11:45 Ur Amphetamines Screen Presumptive negative 05/29/19 11:45 U Benzodiazepines Scrn Presumptive positive 05/29/19 11:45 Presumptive negative 05/29/19 11:45 U Marijuana (THC) Screen Presumptive negative 05/29/19 11:45 Disclamer 05/29/19 11:45 Plasma/Serum Alcohol < 0.01 % (0-0.07) 05/29/19 10:52 Short CBC 05/29/19 Range/Units 05:28 WBC 6.5 (4.5-11.0) K/mm3 Hgb 12.3 (10.1-14.3) gm/dl Hct 37.0 (30.3-42.9) % Plt Count 269 (140-440) K/mm3 BMP 05/29/19 05:28 Sodium 141 Potassium 3.7 Chloride 104.9 Carbon Dioxide 23 BUN 12 Creatinine 0.5 L Glucose 93 Calcium 9.3 Cardiac Enzymes 05/29/19 Range/Units 10:52 Total Creatine Kinase 50 (30-135) units/L Urine 05/29/19 Range/Units 11:45 Urine Color Yellow (Yellow) Urine pH 5.0 (5.0-7.0) Ur Specific [place] 1.035 H (1.003-1.030) Urine Protein <15 mg/dl (Negative) mg/dL Urine Glucose (UA) Neg (Negative) mg/dL - Imaging and Cardiology EKG: report reviewed ( , heart rate 70/m, sinus arrhythmia present normal sinus rhythm) CT Scan - head: report reviewed (no acute findings) Assessment and Plan Advance Directives: Yes (full code) VTE prophylaxis?: Chemical Plan of care discussed with patient/family: Yes - Patient Problems (1) Acute encephalopathy Current Visit: Yes Status: Acute Plan to address problem: Secondary to seizures Mental status improving IV fluids (2) Status epilepticus Current Visit: Yes Status: Acute Plan to address problem: Patient initiated on IV Keppra To be bridged to oral Keppra Patient counseled about restarting by mouth Keppra Patient has stopped Keppra because of breast-feeding Patient has been breast-feeding for 3 months Patient was asked to stop breast-feeding and switch to formula milk or 2% milk if the baby can tolerate. Patient agreed in principle (3) DVT prophylaxis Current Visit: Yes Status: Acute Plan to address problem: Started on Lovenox and GI prophylaxis
[2019-05-29] MEDS ORDERED: SODIUM CHLORIDE FLUSH SYRINGE 10 ML IV PRN (18:46)
[2019-05-29] MEDS ORDERED: DILAUDID IV PRN (18:46)
[2019-05-29] MEDS ORDERED: TYLENOL PO PRN (18:46)
[2019-05-29] MEDS ORDERED: PERCOCET 5/325 PO PRN (18:46)
[2019-05-29] MEDS ORDERED: REGLAN IV PRN (18:46)
[2019-05-29] MEDS: PEPCID IV SCH (21:55)
[2019-05-29] MEDS: SODIUM CHLORIDE FLUSH SYRINGE 10 ML IV SCH (21:55)
[2019-05-29] MEDS: ATIVAN IV PRN (22:39)
[2019-05-29] MEDS: NACL 0.9% 1000 ML 1,000 ML IV SCH (22:39)
[2019-05-29] MEDS: KEPPRA 750 MG in D5W 100 ML IV SCH (22:58)
[2019-05-30 06:15] LABS: Basophils % (Auto) 0.6 % (0.0-1.8); Eosinophils # (Auto) 0.3 K/mm3 (0.0-0.4); Eosinophils % (Auto) 6.2 % (0.0-4.3); Hematocrit 35.9 % (30.3-42.9); Hemoglobin 12.1 gm/dl (10.1-14.3); Lymphocytes # (Auto) 1.8 K/mm3 (1.2-5.4); Lymphocytes % (Auto) 34.7 % (13.4-35.0); Mean Corpuscular HGB Conc 34 % (30-34); Mean Corpuscular Volume 97 fl (79-97); Monocytes # (Auto) 0.6 K/mm3 (0.0-0.8); Monocytes % (Auto) 11.7 % (0.0-7.3); Platelet Count 269 K/mm3 (140-440); Red Blood Count 3.71 M/mm3 (3.65-5.03); Red Cell Distribution Width 13.5 % (13.2-15.2)
[2019-05-30 06:44] LABS: Alanine Aminotransferase 13 units/L (7-56); Albumin 3.7 g/dL (3.9-5); BUN/Creatinine Ratio 16; Blood Urea Nitrogen 8 mg/dL (7-17); Calcium 9.2 mg/dL (8.4-10.2); Hemolysis Index 5
[2019-05-30] MEDS: ATIVAN IV PRN (10:07)
[2019-05-30] MEDS: PEPCID IV SCH ×2 (10:07→21:17)
[2019-05-30] MEDS: KEPPRA 750 MG in D5W 100 ML IV SCH ×2 (10:15→21:17)
[2019-05-30] MEDS: SODIUM CHLORIDE FLUSH SYRINGE 10 ML IV SCH ×2 (10:16→21:18)
--- NOTE | 2019-05-30 11:38 | Progress Note ---
Assessment and Plan Assessment and plan: 1) Acute encephalopathy Current Visit: Yes Status: Acute Plan to address problem: Secondary to seizures,possible post ictal Patient more alert and awake this morning seizure precautions,Ativan as needed Do not drive (2) Status epilepticus Current Visit: Yes Status: Acute Plan to address problem: Patient initiated on IV Keppra To be bridged to oral Keppra Patient counseled about restarting by mouth Keppra Patient has stopped Keppra because of breast-feeding Patient has been breast-feeding for 3 months Patient was asked to stop breast-feeding and switch to formula milk or 2% milk if the baby can tolerate. Patient agreed in principle (3) DVT prophylaxis Current Visit: Yes Status: Acute Plan to address problem: Started on Lovenox and GI prophylaxis History Interval history: Patient seen and examined,medical records reviewed. Admitted with seizures ,on antepileptic meds Hospitalist Physical - Constitutional Vitals: Temp Pulse Resp BP Pulse Ox 97.3 F L 76 18 109/71 100 05/30/19 04:13 05/30/19 04:13 05/30/19 04:13 05/30/19 04:13 05/30/19 04:13 General appearance: Present: no acute distress, well-nourished - EENT Eyes: Present: PERRL, EOM intact - Neck Neck: Present: supple, normal ROM - Respiratory Respiratory effort: normal Respiratory: bilateral: diminished, negative: rales, rhonchi, wheezing - Cardiovascular Rhythm: regular Heart Sounds: Present: S1 & S2 - Extremities Extremities: no ischemia, No edema - Abdominal General gastrointestinal: soft, non-tender, non-distended, normal bowel sounds - Integumentary Integumentary: Present: clear, warm - Psychiatric Psychiatric: appropriate mood/affect, cooperative - Neurologic Neurologic: moves all extremities Results - Labs CBC & Chem 7: 05/30/19 00:47 05/30/19 05:53 Labs: Laboratory Last Values WBC 5.3 K/mm3 (4.5-11.0) 05/30/19 00:47 RBC 3.71 M/mm3 (3.65-5.03) 05/30/19 00:47 Hgb 12.1 gm/dl (10.1-14.3) 05/30/19 00:47 Hct 35.9 % (30.3-42.9) 05/30/19 00:47 MCV 97 fl (79-97) 05/30/19 00:47 MCH 33 pg (28-32) H 05/30/19 00:47 MCHC 34 % (30-34) 05/30/19 00:47 RDW 13.5 % (13.2-15.2) 05/30/19 00:47 Plt Count 269 K/mm3 (140-440) 05/30/19 00:47 Lymph % (Auto) 34.7 % (13.4-35.0) 05/30/19 00:47 [place] % (Auto) 11.7 % (0.0-7.3) H 05/30/19 00:47 Eos % (Auto) 6.2 % (0.0-4.3) H 05/30/19 00:47 Baso % (Auto) 0.6 % (0.0-1.8) 05/30/19 00:47 Lymph # 1.8 K/mm3 (1.2-5.4) 05/30/19 00:47 [place] # 0.6 K/mm3 (0.0-0.8) 05/30/19 00:47 Eos # 0.3 K/mm3 (0.0-0.4) 05/30/19 00:47 Baso # 0.0 K/mm3 (0.0-0.1) 08 00:47 Seg Neutrophils % 46.8 % (40.0-70.0) 05/30/19 00:47 Seg Neutrophils # 2.5 K/mm3 (1.8-7.7) 05/30/19 00:47 Sodium 142 mmol/L (137-145) 05/30/19 05:53 Potassium 3.7 mmol/L (3.6-5.0) 05/30/19 05:53 Chloride 105.6 mmol/L (98-107) 05/30/19 05:53 Carbon Dioxide 21 mmol/L (22-30) L 05/30/19 05:53 19 mmol/L 05/30/19 05:53 BUN 8 mg/dL (7-17) 05/30/19 05:53 0.5 mg/dL (0.7-1.2) L 05/30/19 05:53 Estimated GFR > 60 ml/min 05/30/19 05:53 16 % 05/30/19 05:53 Glucose 71 mg/dL (65-100) 05/30/19 05:53 POC Glucose 91 (70-105) 05/29/19 09:11 5.2 % (4-6) 05/29/19 20:05 Calcium 9.2 mg/dL (8.4-10.2) 05/30/19 05:53 0.50 mg/dL (0.1-1.2) 05/30/19 05:53 AST 17 units/L (5-40) 05/30/19 05:53 ALT 13 units/L (7-56) 05/30/19 05:53 91 units/L (35-129) 05/30/19 05:53 50 units/L (30-135) 05/29/19 10:52 6.5 g/dL (6.3-8.2) 05/30/19 05:53 3.7 g/dL (3.9-5) L 05/30/19 05:53 1.3 % 05/30/19 05:53 HCG, Qual Negative (Negative) 05/29/19 05:28 Yellow (Yellow) 05/29/19 11:45 Clear (Clear) 05/29/19 11:45 5.0 (5.0-7.0) 05/29/19 11:45 Ur Specific [place] 1.035 (1.003-1.030) H 05/29/19 11:45 <15 mg/dl mg/dL (Negative) 05/29/19 11:45 Neg mg/dL (Negative) 05/29/19 11:45 20 mg/dL (Negative) 05/29/19 11:45 Neg (Negative) 05/29/19 11:45 Neg (Negative) 05/29/19 11:45 Neg (Negative) 05/29/19 11:45 4.0 mg/dL (<2.0) 05/29/19 11:45 Ur Leukocyte Esterase Neg (Negative) 05/29/19 11:45 1.0 /HPF (0.0-6.0) 05/29/19 11:45 1.0 /HPF (0.0-6.0) 05/29/19 11:45 U Epithel Cells (Auto) < 1.0 /HPF (0-13.0) 05/29/19 11:45 2+ /HPF 05/29/19 11:45 Salicylates < 0.3 mg/dL (2.8-20.0) L 05/29/19 10:52 Presumptive negative 05/29/19 11:45 Presumptive negative 05/29/19 11:45 Acetaminophen < 5.0 ug/mL (10.0-30.0) L 05/29/19 10:52 Ur Barbiturates Screen Presumptive negative 05/29/19 11:45 Ur Phencyclidine Scrn Presumptive negative 05/29/19 11:45 Ur Amphetamines Screen Presumptive negative 05/29/19 11:45 U Benzodiazepines Scrn Presumptive positive 05/29/19 11:45 Presumptive negative 05/29/19 11:45 U Marijuana (THC) Screen Presumptive negative 05/29/19 11:45 Disclamer 05/29/19 11:45 Plasma/Serum Alcohol < 0.01 % (0-0.07) 05/29/19 10:52 Active Medications - Current Medications Current Medications: Generic Name Dose Route Start Last Admin Trade Name Freq PRN Reason Stop Dose Admin Acetaminophen 650 mg 05/29/19 18:46 Tylenol PO Q4H PRN Pain MILD(1-3)/Fever >100.5/SKAGGS Famotidine 20 mg 05/29/19 22:00 05/30/19 10:07 Pepcid IV 20 mg BID TORRIE Administration Hydromorphone HCl 0.5 mg 05/29/19 18:46 Dilaudid IV Q3H PRN Pain , Severe (7-10) Sodium Chloride 1,000 mls @ 75 mls/hr 05/29/19 19:00 05/29/19 22:39 Nacl 0.9% 1000 Ml IV 75 mls/hr DIRECT TORRIE Administration Levetiracetam 750 mg/ Dextrose 107.5 mls @ 430 mls/hr 05/29/19 23:00 05/30/19 10:15 IV 430 mls/hr Q12HR TORRIE Administration Lorazepam 1 mg 05/29/19 22:24 05/30/19 10:07 Ativan IV 1 mg Q2H PRN Administration Seizures Metoclopramide HCl 10 mg 05/29/19 18:46 Reglan IV Q6H PRN Nausea And Vomiting Ondansetron HCl 4 mg 05/29/19 18:46 Zofran IV Q8H PRN Nausea And Vomiting Oxycodone/Acetaminophen 1 tab 05/29/19 18:46 Percocet 5/325 PO Q6H PRN Pain, Moderate (4-6) Sodium Chloride 10 ml 05/29/19 22:00 05/30/19 10:16 Sodium Chloride Flush Syringe 10 Ml IV 10 ml BID TORRIE Administration Sodium Chloride 10 ml 05/29/19 18:46 Sodium Chloride Flush Syringe 10 Ml IV PRN PRN LINE FLUSH Nutrition/Malnutrition Assess - Dietary Evaluation Nutrition/Malnutrition Findings: Nutrition Notes Start: 05/30/19 11:26 Freq: Status: Active Protocol: Document 05/30/19 11:26 LP (Rec: 05/30/19 11:32 LP [id number]) Nutrition Notes Need for Assessment generated from: [employer] Initial or Follow up Assessment Other Pertinent Diagnosis Acute Encephalopathy, Seizures , Current Diet Regular Labs/Tests Reviewed Pertinent Medications Reviewed Height 5 ft 5 in Weight 52.163 kg [place] Body Weight (kg) 56.81 BMI 19.1 Subjective/Other Information Screen for MST. Pt currently and stopped seizure medications. Pt states wt loss but could be from giving and . Pt states not eating well and would like a supplement. States being unable to afford Ensure shakes at home. Burn Absent Trauma Absent #1 Nutrition Diagnosis Increased nutrient needs ( specify in comment below) Comments: Kcal, protein and fluid Etiology exclusively As Evidenced by Signs and Symptoms Pt states not eating well but continues pumping breast for baby. Is patient on ventilator? No Is Patient Ambulatory and/or Out of Bed Yes REE-([facility]-ambulatory/OOB) [ 1667.263 NUTR.MSJOOB] Kcal/Kg value to use for calculation 41 Approximate Energy Requirements Using 2139 kcal/Kg Additional Notes Protein needs are 52-62g (1-1. 2g/kg) Fluid needs are 1ml/kcal Nutrition Intervention Change Diet Order: Continue Add Supplement/Snack (indicate name/kcal Ensure Enlive BID Vanilla /protein ) Provides kCal: 700 Provides Protein (gm) 40 Goal #1 Meet at least 80% of kcal and protein needs Anticipated Discharge Needs: Regular with ONS BID and plenty of fluids Follow-Up By: 06/03/19 Additional Comments Follow for intakes, ONS tolerance
[2019-05-30] MEDS: NACL 0.9% 1000 ML 1,000 ML IV SCH (14:42)
--- NOTE | 2019-05-30 18:29 | Progress Note ---
Hospitalist Physical - Constitutional Vitals: Temp Pulse Resp BP Pulse Ox 98.5 F 85 18 116/79 99 05/30/19 12:08 05/30/19 12:08 05/30/19 12:08 05/30/19 12:08 05/30/19 12:08 General appearance: Present: no acute distress, well-nourished Results - Labs CBC & Chem 7: 05/30/19 00:47 05/30/19 05:53 Labs: Laboratory Last Values WBC 5.3 K/mm3 (4.5-11.0) 05/30/19 00:47 RBC 3.71 M/mm3 (3.65-5.03) 05/30/19 00:47 Hgb 12.1 gm/dl (10.1-14.3) 05/30/19 00:47 Hct 35.9 % (30.3-42.9) 05/30/19 00:47 MCV 97 fl (79-97) 05/30/19 00:47 MCH 33 pg (28-32) H 05/30/19 00:47 MCHC 34 % (30-34) 05/30/19 00:47 RDW 13.5 % (13.2-15.2) 05/30/19 00:47 Plt Count 269 K/mm3 (140-440) 05/30/19 00:47 Lymph % (Auto) 34.7 % (13.4-35.0) 05/30/19 00:47 [place] % (Auto) 11.7 % (0.0-7.3) H 05/30/19 00:47 Eos % (Auto) 6.2 % (0.0-4.3) H 05/30/19 00:47 Baso % (Auto) 0.6 % (0.0-1.8) 05/30/19 00:47 Lymph # 1.8 K/mm3 (1.2-5.4) 05/30/19 00:47 [place] # 0.6 K/mm3 (0.0-0.8) 05/30/19 00:47 Eos # 0.3 K/mm3 (0.0-0.4) 05/30/19 00:47 Baso # 0.0 K/mm3 (0.0-0.1) 05/30/19 00:47 Seg Neutrophils % 46.8 % (40.0-70.0) 05/30/19 00:47 Seg Neutrophils # 2.5 K/mm3 (1.8-7.7) 05/30/19 00:47 Sodium 142 mmol/L (137-145) 05/30/19 05:53 Potassium 3.7 mmol/L (3.6-5.0) 05/30/19 05:53 Chloride 105.6 mmol/L (98-107) 05/30/19 05:53 Carbon Dioxide 21 mmol/L (22-30) L 05/30/19 05:53 19 mmol/L 05/30/19 05:53 BUN 8 mg/dL (7-17) 05/30/19 05:53 0.5 mg/dL (0.7-1.2) L 05/30/19 05:53 Estimated GFR > 60 ml/min 05/30/19 05:53 16 % 05/30/19 05:53 Glucose 71 mg/dL (65-100) 05/30/19 05:53 POC Glucose 91 (70-105) 05/29/19 09:11 5.2 % (4-6) 05/29/19 20:05 Calcium 9.2 mg/dL (8.4-10.2) 05/30/19 05:53 0.50 mg/dL (0.1-1.2) 05/30/19 05:53 AST 17 units/L (5-40) 05/30/19 05:53 ALT 13 units/L (7-56) 05/30/19 05:53 91 units/L (35-129) 05/30/19 05:53 50 units/L (30-135) 05/29/19 10:52 6.5 g/dL (6.3-8.2) 05/30/19 05:53 3.7 g/dL (3.9-5) L 05/30/19 05:53 1.3 % 05/30/19 05:53 HCG, Qual Negative (Negative) 05/29/19 05:28 Yellow (Yellow) 05/29/19 11:45 Clear (Clear) 05/29/19 11:45 5.0 (5.0-7.0) 05/29/19 11:45 Ur Specific [place] 1.035 (1.003-1.030) H 05/29/19 11:45 <15 mg/dl mg/dL (Negative) 05/29/19 11:45 Neg mg/dL (Negative) 05/29/19 11:45 20 mg/dL (Negative) 05/29/19 11:45 Neg (Negative) 05/29/19 11:45 Neg (Negative) 05/29/19 11:45 Neg (Negative) 05/29/19 11:45 4.0 mg/dL (<2.0) 05/29/19 11:45 Ur Leukocyte Esterase Neg (Negative) 05/29/19 11:45 1.0 /HPF (0.0-6.0) 05/29/19 11:45 1.0 /HPF (0.0-6.0) 05/29/19 11:45 U Epithel Cells (Auto) < 1.0 /HPF (0-13.0) 05/29/19 11:45 2+ /HPF 05/29/19 11:45 Salicylates < 0.3 mg/dL (2.8-20.0) L 05/29/19 10:52 Presumptive negative 05/29/19 11:45 Presumptive negative 05/29/19 11:45 Acetaminophen < 5.0 ug/mL (10.0-30.0) L 05/29/19 10:52 Ur Barbiturates Screen Presumptive negative 05/29/19 11:45 Ur Phencyclidine Scrn Presumptive negative 05/29/19 11:45 Ur Amphetamines Screen Presumptive negative 05/29/19 11:45 U Benzodiazepines Scrn Presumptive positive 05/29/19 11:45 Presumptive negative 05/29/19 11:45 U Marijuana (THC) Screen Presumptive negative 05/29/19 11:45 Disclamer 05/29/19 11:45 Plasma/Serum Alcohol < 0.01 % (0-0.07) 05/29/19 10:52 Active Medications - Current Medications Current Medications: Generic Name Dose Route Start Last Admin Trade Name Freq PRN Reason Stop Dose Admin Acetaminophen 650 mg 05/29/19 18:46 Tylenol PO Q4H PRN Pain MILD(1-3)/Fever >100.5/SKAGGS Famotidine 20 mg 05/29/19 22:00 05/30/19 10:07 Pepcid IV 20 mg BID TORRIE Administration Hydromorphone HCl 0.5 mg 05/29/19 18:46 Dilaudid IV Q3H PRN Pain , Severe (7-10) Sodium Chloride 1,000 mls @ 75 mls/hr 05/29/19 19:00 05/30/19 14:42 Nacl 0.9% 1000 Ml IV 75 mls/hr DIRECT TORRIE Administration Levetiracetam 750 mg/ Dextrose 107.5 mls @ 430 mls/hr 05/29/19 23:00 05/30/19 10:15 IV 430 mls/hr Q12HR TORRIE Administration Lorazepam 1 mg 05/29/19 22:24 05/30/19 10:07 Ativan IV 1 mg Q2H PRN Administration Seizures Metoclopramide HCl 10 mg 05/29/19 18:46 Reglan IV Q6H PRN Nausea And Vomiting Ondansetron HCl 4 mg 05/29/19 18:46 Zofran IV Q8H PRN Nausea And Vomiting Sodium Chloride 10 ml 05/29/19 22:00 05/30/19 10:16 Sodium Chloride Flush Syringe 10 Ml IV 10 ml BID TORRIE Administration Sodium Chloride 10 ml 05/29/19 18:46 Sodium Chloride Flush Syringe 10 Ml IV PRN PRN LINE FLUSH Nutrition/Malnutrition Assess - Dietary Evaluation Nutrition/Malnutrition Findings: Nutrition Notes Start: 05/30/19 11:26 Freq: Status: Active Protocol: Document 05/30/19 11:26 LP (Rec: 05/30/19 11:32 LP [id number]) Nutrition Notes Need for Assessment generated from: [employer] Initial or Follow up Assessment Other Pertinent Diagnosis Acute Encephalopathy, Seizures , Current Diet Regular Labs/Tests Reviewed Pertinent Medications Reviewed Height 5 ft 5 in Weight 52.163 kg [place] Body Weight (kg) 56.81 BMI 19.1 Subjective/Other Information Screen for MST. Pt currently and stopped seizure medications. Pt states wt loss but could be from giving and . Pt states not eating well and would like a supplement. States being unable to afford Ensure shakes at home. Burn Absent Trauma Absent #1 Nutrition Diagnosis Increased nutrient needs ( specify in comment below) Comments: Kcal, protein and fluid Etiology exclusively As Evidenced by Signs and Symptoms Pt states not eating well but continues pumping breast for baby. Is patient on ventilator? No Is Patient Ambulatory and/or Out of Bed Yes REE-([place] [facility]-ambulatory/OOB) [ 1667.263 NUTR.MSJOOB] Kcal/Kg value to use for calculation 41 Approximate Energy Requirements Using 2139 kcal/Kg Additional Notes Protein needs are 52-62g (1-1. 2g/kg) Fluid needs are 1ml/kcal Nutrition Intervention Change Diet Order: Continue Add Supplement/Snack (indicate name/kcal Ensure Enlive BID Vanilla /protein ) Provides kCal: 700 Provides Protein (gm) 40 Goal #1 Meet at least 80% of kcal and protein needs Anticipated Discharge Needs: Regular with ONS BID and plenty of fluids Follow-Up By: 06/03/19 Additional Comments Follow for intakes, ONS tolerance
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
[2019-05-31] MEDS: NACL 0.9% 1000 ML 1,000 ML IV SCH ×2 (06:06→22:07)
[2019-05-31] MEDS: ATIVAN IV PRN (08:50)
[2019-05-31] MEDS: SODIUM CHLORIDE FLUSH SYRINGE 10 ML IV SCH ×3 (08:51→22:17)
[2019-05-31] MEDS: KEPPRA 750 MG in D5W 100 ML IV SCH ×2 (08:56→12:09)
[2019-05-31] MEDS: PEPCID IV SCH ×2 (09:05→21:53)
[2019-05-31] MEDS: KEPPRA PO SCH ×2 (14:41→22:01)
[2019-05-31] MEDS ORDERED: XANAX PO PRN (15:55)
[2019-05-31] MEDS: ZOFRAN IV PRN (17:27)
[2019-05-31] MEDS ORDERED: TYLENOL PO PRN (18:00)
--- NOTE | 2019-05-31 18:05 | Progress Note ---
Assessment and Plan Assessment and plan: -- Acute encephalopathy Current Visit: Yes Status: Acute Plan to address problem: Secondary to seizures,possible post ictal Patient more alert and awake this morning seizure precautions,Ativan as needed Do not drive -- Status epilepticus Current Visit: Yes Status: Acute Plan to address problem: On Keppra, seizure precautions Neurology following, Patient can breast feed on Keppra per neuro --Possible pseudoseizures per neurology Neuro recommend psychiatry evaluation For cognitive behavioral therapy Follow psych evaluation and recommendations -- DVT prophylaxis Current Visit: Yes Status: Acute Plan to address problem: Started on Lovenox and GI prophylaxis History Interval history: And had few episodes of seizure-like activity Neuro feels these are pseudoseizures Patient is alert and awake ,Vital signs reviewed Hospitalist Physical - Constitutional Vitals: Temp Pulse Resp BP Pulse Ox 97.9 F 68 18 113/66 98 05/31/19 05:14 05/31/19 05:14 05/31/19 05:14 05/31/19 05:14 05/31/19 05:14 General appearance: Present: no acute distress, well-nourished - EENT Eyes: Present: PERRL, EOM intact - Neck Neck: Present: supple, normal ROM - Respiratory Respiratory effort: normal Respiratory: bilateral: diminished, negative: rales, rhonchi, wheezing - Cardiovascular Rhythm: regular Heart Sounds: Present: S1 & S2 - Extremities Extremities: no ischemia, No edema - Abdominal General gastrointestinal: soft, non-tender, non-distended, normal bowel sounds - Integumentary Integumentary: Present: clear, warm - Psychiatric Psychiatric: appropriate mood/affect, cooperative - Neurologic Neurologic: CNII-XII intact, moves all extremities Results - Labs CBC & Chem 7: 05/30/19 00:47 05/30/19 05:53 Labs: Laboratory Last Values WBC 5.3 K/mm3 (4.5-11.0) 05/30/19 00:47 RBC 3.71 M/mm3 (3.65-5.03) 05/30/19 00:47 Hgb 12.1 gm/dl (10.1-14.3) 05/30/19 00:47 Hct 35.9 % (30.3-42.9) 05/30/19 00:47 MCV 97 fl (79-97) 05/30/19 00:47 MCH 33 pg (28-32) H 05/30/19 00:47 MCHC 34 % (30-34) 05/30/19 00:47 RDW 13.5 % (13.2-15.2) 05/30/19 00:47 Plt Count 269 K/mm3 (140-440) 05/30/19 00:47 Lymph % (Auto) 34.7 % (13.4-35.0) 05/30/19 00:47 [place] % (Auto) 11.7 % (0.0-7.3) H 05/30/19 00:47 Eos % (Auto) 6.2 % (0.0-4.3) H 05/30/19 00:47 Baso % (Auto) 0.6 % (0.0-1.8) 05/30/19 00:47 Lymph # 1.8 K/mm3 (1.2-5.4) 05/30/19 00:47 [place]ie # 0.6 K/mm3 (0.0-0.8) 05/30/19 00:47 Eos # 0.3 K/mm3 (0.0-0.4) 05/30/19 00:47 Baso # 0.0 K/mm3 (0.0-0.1) 05/30/19 00:47 Seg Neutrophils % 46.8 % (40.0-70.0) 05/30/19 00:47 Seg Neutrophils # 2.5 K/mm3 (1.8-7.7) 05/30/19 00:47 Sodium 142 mmol/L (137-145) 05/30/19 05:53 Potassium 3.7 mmol/L (3.6-5.0) 05/30/19 05:53 Chloride 105.6 mmol/L (98-107) 05/30/19 05:53 Carbon Dioxide 21 mmol/L (22-30) L 05/30/19 05:53 19 mmol/L 05/30/19 05:53 BUN 8 mg/dL (7-17) 05/30/19 05:53 0.5 mg/dL (0.7-1.2) L 05/30/19 05:53 Estimated GFR > 60 ml/min 05/30/19 05:53 16 % 05/30/19 05:53 Glucose 71 mg/dL (65-100) 05/30/19 05:53 POC Glucose 91 (70-105) 05/29/19 09:11 5.2 % (4-6) 05/29/19 20:05 Calcium 9.2 mg/dL (8.4-10.2) 05/30/19 05:53 0.50 mg/dL (0.1-1.2) 05/30/19 05:53 AST 17 units/L (5-40) 05/30/19 05:53 ALT 13 units/L (7-56) 05/30/19 05:53 91 units/L (35-129) 05/30/19 05:53 50 units/L (30-135) 05/29/19 10:52 6.5 g/dL (6.3-8.2) 05/30/19 05:53 3.7 g/dL (3.9-5) L 05/30/19 05:53 1.3 % 05/30/19 05:53 HCG, Qual Negative (Negative) 05/29/19 05:28 Yellow (Yellow) 05/29/19 11:45 Clear (Clear) 05/29/19 11:45 5.0 (5.0-7.0) 05/29/19 11:45 Ur Specific [place] 1.035 (1.003-1.030) H 05/29/19 11:45 <15 mg/dl mg/dL (Negative) 05/29/19 11:45 Neg mg/dL (Negative) 05/29/19 11:45 20 mg/dL (Negative) 05/29/19 11:45 Neg (Negative) 05/29/19 11:45 Neg (Negative) 05/29/19 11:45 Neg (Negative) 05/29/19 11:45 4.0 mg/dL (<2.0) 05/29/19 11:45 Ur Leukocyte Esterase Neg (Negative) 05/29/19 11:45 1.0 /HPF (0.0-6.0) 05/29/19 11:45 1.0 /HPF (0.0-6.0) 05/29/19 11:45 U Epithel Cells (Auto) < 1.0 /HPF (0-13.0) 05/29/19 11:45 2+ /HPF 05/29/19 11:45 Salicylates < 0.3 mg/dL (2.8-20.0) L 05/29/19 10:52 Presumptive negative 05/29/19 11:45 Presumptive negative 05/29/19 11:45 Acetaminophen < 5.0 ug/mL (10.0-30.0) L 05/29/19 10:52 Ur Barbiturates Screen Presumptive negative 05/29/19 11:45 Ur Phencyclidine Scrn Presumptive negative 05/29/19 11:45 Ur Amphetamines Screen Presumptive negative 05/29/19 11:45 U Benzodiazepines Scrn Presumptive positive 05/29/19 11:45 Presumptive negative 05/29/19 11:45 U Marijuana (THC) Screen Presumptive negative 05/29/19 11:45 Disclamer 05/29/19 11:45 Plasma/Serum Alcohol < 0.01 % (0-0.07) 05/29/19 10:52 Active Medications - Current Medications Current Medications: Generic Name Dose Route Start Last Admin Trade Name Freq PRN Reason Stop Dose Admin Acetaminophen 650 mg 05/31/19 18:00 Tylenol PO Q4H PRN Pain MILD(1-3)/Fever >100.5/SKAGGS Alprazolam 0.25 mg 05/31/19 15:55 Xanax PO Q8H PRN Anxiety Famotidine 20 mg 05/29/19 22:00 05/31/19 09:05 Pepcid IV 20 mg BID TORRIE Administration Hydromorphone HCl 0.5 mg 05/29/19 18:46 Dilaudid IV Q3H PRN Pain , Severe (7-10) Sodium Chloride 1,000 mls @ 75 mls/hr 05/29/19 19:00 05/31/19 06:06 Nacl 0.9% 1000 Ml IV 75 mls/hr DIRECT TORRIE Administration Levetiracetam 750 mg 05/31/19 12:00 05/31/19 14:41 Keppra PO 750 mg BID TORRIE Administration Metoclopramide HCl 10 mg 05/29/19 18:46 Reglan IV Q6H PRN Nausea And Vomiting Ondansetron HCl 4 mg 05/29/19 18:46 05/31/19 17:27 Zofran IV 4 mg Q8H PRN Administration Nausea And Vomiting Sodium Chloride 10 ml 05/29/19 22:00 05/31/19 14:41 Sodium Chloride Flush Syringe 10 Ml IV 10 ml BID TORRIE Administration Sodium Chloride 10 ml 05/29/19 18:46 Sodium Chloride Flush Syringe 10 Ml IV PRN PRN LINE FLUSH Nutrition/Malnutrition Assess - Dietary Evaluation Nutrition/Malnutrition Findings: Nutrition Notes Start: 05/30/19 11:26 Freq: Status: Active Protocol: Document 05/30/19 11:26 LP (Rec: 05/30/19 11:32 LP [id number]) Nutrition Notes Need for Assessment generated from: paper box cutter Initial or Follow up Assessment Other Pertinent Diagnosis Acute Encephalopathy, Seizures , Current Diet Regular Labs/Tests Reviewed Pertinent Medications Reviewed Height 5 ft 5 in Weight 52.163 kg [place] Body Weight (kg) 56.81 BMI 19.1 Subjective/Other Information Screen for MST. Pt currently and stopped seizure medications. Pt states wt loss but could be from giving and . Pt states not eating well and would like a supplement. States being unable to afford Ensure shakes at home. Burn Absent Trauma Absent #1 Nutrition Diagnosis Increased nutrient needs ( specify in comment below) Comments: Kcal, protein and fluid Etiology exclusively As Evidenced by Signs and Symptoms Pt states not eating well but continues pumping breast for baby. Is patient on ventilator? No Is Patient Ambulatory and/or Out of Bed Yes REE-([facility]-ambulatory/OOB) [ 1667.263 NUTR.MSJOOB] Kcal/Kg value to use for calculation 41 Approximate Energy Requirements Using 2139 kcal/Kg Additional Notes Protein needs are 52-62g (1-1. 2g/kg) Fluid needs are 1ml/kcal Nutrition Intervention Change Diet Order: Continue Add Supplement/Snack (indicate name/kcal Ensure Enlive BID Vanilla /protein ) Provides kCal: 700 Provides Protein (gm) 40 Goal #1 Meet at least 80% of kcal and protein needs Anticipated Discharge Needs: Regular with ONS BID and plenty of fluids Follow-Up By: 06/03/19 Additional Comments Follow for intakes, ONS tolerance
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
--- NOTE | 2019-06-01 05:32 | Event Note ---
Date: 05/31/19 notified by CHETAN Perales that pt experienced a questionable seizure. Patient states that she had a seizure then asked to use the rest and complained about too many people being in in her room at the time. No neurological deficits noted. Shortly after patient requested a meal and is chatting with male big data solutions architect in room.
--- NOTE | 2019-06-01 08:42 | Progress Note ---
Assessment and Plan Assessment and plan: -- Acute encephalopathy Current Visit: Yes Status: Acute Plan to address problem: Secondary to seizures,possible post ictal; resolved Patient more alert and awake , ambulated with her boyfriend Holding onto the IV pole, new episodes of seizures today seizure precautions, neurology did not want Ativan Do not drive -- Status epilepticus Current Visit: Yes Status: Acute Plan to address problem: On Keppra, seizure precautions Neurology following, Patient can breast feed on Keppra per neuro --possible pseudoseizures per Neuro Neuro recommend psychiatry evaluation For cognitive behavioral therapy Follow psych evaluation and recommendations -- DVT prophylaxis Current Visit: Yes Status: Acute Plan to address problem: Started on Lovenox and GI prophylaxis Disposition; possible discharge and patient is stable And seizure-free Plan of care discussed with the patient and her nurse History Interval history: Patient seen and examined medical records reviewed No new episodes of seizures today Patient is alert awake oriented 3 Not in acute distress Vital signs reviewed Awaiting psych evaluation Hospitalist Physical - Constitutional Vitals: Temp Pulse Resp BP Pulse Ox 97.6 F 54 L 15 102/60 98 06/01/19 05:32 06/01/19 05:32 06/01/19 05:32 06/01/19 05:32 06/01/19 05:32 General appearance: Present: no acute distress, well-nourished - EENT Eyes: Present: PERRL, EOM intact - Neck Neck: Present: supple, normal ROM - Respiratory Respiratory effort: normal Respiratory: bilateral: diminished, negative: rales, rhonchi, wheezing - Cardiovascular Rhythm: regular Heart Sounds: Present: S1 & S2 - Extremities Extremities: no ischemia, No edema - Abdominal General gastrointestinal: soft, non-tender, normal bowel sounds - Integumentary Integumentary: Present: clear, warm - Psychiatric Psychiatric: appropriate mood/affect, cooperative - Neurologic Neurologic: CNII-XII intact, moves all extremities Results - Labs CBC & Chem 7: 05/30/19 00:47 05/30/19 05:53 Labs: Laboratory Last Values WBC 5.3 K/mm3 (4.5-11.0) 05/30/19 00:47 RBC 3.71 M/mm3 (3.65-5.03) 05/30/19 00:47 Hgb 12.1 gm/dl (10.1-14.3) 05/30/19 00:47 Hct 35.9 % (30.3-42.9) 05/30/19 00:47 MCV 97 fl (79-97) 05/30/19 00:47 MCH 33 pg (28-32) H 05/30/19 00:47 MCHC 34 % (30-34) 05/30/19 00:47 RDW 13.5 % (13.2-15.2) 05/30/19 00:47 Plt Count 269 K/mm3 (140-440) 05/30/19 00:47 Lymph % (Auto) 34.7 % (13.4-35.0) 05/30/19 00:47 [place] % (Auto) 11.7 % (0.0-7.3) H 05/30/19 00:47 Eos % (Auto) 6.2 % (0.0-4.3) H 05/30/19 00:47 Baso % (Auto) 0.6 % (0.0-1.8) 05/30/19 00:47 Lymph # 1.8 K/mm3 (1.2-5.4) 05/30/19 00:47 [place] # 0.6 K/mm3 (0.0-0.8) 05/30/19 00:47 Eos # 0.3 K/mm3 (0.0-0.4) 05/30/19 00:47 Baso # 0.0 K/mm3 (0.0-0.1) 05/30/19 00:47 Seg Neutrophils % 46.8 % (40.0-70.0) 05/30/19 00:47 Seg Neutrophils # 2.5 K/mm3 (1.8-7.7) 05/30/19 00:47 Sodium 142 mmol/L (137-145) 05/30/19 05:53 Potassium 3.7 mmol/L (3.6-5.0) 05/30/19 05:53 Chloride 105.6 mmol/L (98-107) 05/30/19 05:53 Carbon Dioxide 21 mmol/L (22-30) L 05/30/19 05:53 19 mmol/L 05/30/19 05:53 BUN 8 mg/dL (7-17) 05/30/19 05:53 0.5 mg/dL (0.7-1.2) L 05/30/19 05:53 Estimated GFR > 60 ml/min 05/30/19 05:53 16 % 05/30/19 05:53 Glucose 71 mg/dL (65-100) 05/30/19 05:53 POC Glucose 91 (70-105) 05/29/19 09:11 5.2 % (4-6) 05/29/19 20:05 Calcium 9.2 mg/dL (8.4-10.2) 05/30/19 05:53 0.50 mg/dL (0.1-1.2) 05/30/19 05:53 AST 17 units/L (5-40) 05/30/19 05:53 ALT 13 units/L (7-56) 05/30/19 05:53 91 units/L (35-129) 05/30/19 05:53 50 units/L (30-135) 05/29/19 10:52 6.5 g/dL (6.3-8.2) 05/30/19 05:53 3.7 g/dL (3.9-5) L 05/30/19 05:53 1.3 % 05/30/19 05:53 HCG, Qual Negative (Negative) 05/29/19 05:28 Yellow (Yellow) 05/29/19 11:45 Clear (Clear) 05/29/19 11:45 5.0 (5.0-7.0) 05/29/19 11:45 Ur Specific [place] 1.035 (1.003-1.030) H 05/29/19 11:45 <15 mg/dl mg/dL (Negative) 05/29/19 11:45 Neg mg/dL (Negative) 05/29/19 11:45 20 mg/dL (Negative) 05/29/19 11:45 Neg (Negative) 05/29/19 11:45 Neg (Negative) 05/29/19 11:45 Neg (Negative) 05/29/19 11:45 4.0 mg/dL (<2.0) 05/29/19 11:45 Ur Leukocyte Esterase Neg (Negative) 05/29/19 11:45 1.0 /HPF (0.0-6.0) 05/29/19 11:45 1.0 /HPF (0.0-6.0) 05/29/19 11:45 U Epithel Cells (Auto) < 1.0 /HPF (0-13.0) 05/29/19 11:45 2+ /HPF 05/29/19 11:45 Salicylates < 0.3 mg/dL (2.8-20.0) L 05/29/19 10:52 Presumptive negative 05/29/19 11:45 Presumptive negative 05/29/19 11:45 Acetaminophen < 5.0 ug/mL (10.0-30.0) L 05/29/19 10:52 Ur Barbiturates Screen Presumptive negative 05/29/19 11:45 Ur Phencyclidine Scrn Presumptive negative 05/29/19 11:45 Ur Amphetamines Screen Presumptive negative 05/29/19 11:45 U Benzodiazepines Scrn Presumptive positive 05/29/19 11:45 Presumptive negative 05/29/19 11:45 U Marijuana (THC) Screen Presumptive negative 05/29/19 11:45 Disclamer 05/29/19 11:45 Plasma/Serum Alcohol < 0.01 % (0-0.07) 05/29/19 10:52 Active Medications - Current Medications Current Medications: Generic Name Dose Route Start Last Admin Trade Name Freq PRN Reason Stop Dose Admin Acetaminophen 650 mg 05/31/19 18:00 05/31/19 18:15 Tylenol PO 650 mg Q4H PRN Administration Pain MILD(1-3)/Fever >100.5/SKAGGS Alprazolam 0.25 mg 05/31/19 15:55 Xanax PO Q8H PRN Anxiety Famotidine 20 mg 05/29/19 22:00 05/31/19 21:53 Pepcid IV 20 mg BID TORRIE Administration Hydromorphone HCl 0.5 mg 05/29/19 18:46 Dilaudid IV Q3H PRN Pain , Severe (7-10) Sodium Chloride 1,000 mls @ 75 mls/hr 05/29/19 19:00 05/31/19 22:07 Nacl 0.9% 1000 Ml IV 75 mls/hr DIRECT TORRIE Administration Levetiracetam 750 mg 05/31/19 12:00 05/31/19 22:01 Keppra PO 750 mg BID TORRIE Administration Metoclopramide HCl 10 mg 05/29/19 18:46 Reglan IV Q6H PRN Nausea And Vomiting Ondansetron HCl 4 mg 05/29/19 18:46 05/31/19 17:27 Zofran IV 4 mg Q8H PRN Administration Nausea And Vomiting Sodium Chloride 10 ml 05/29/19 22:00 05/31/19 22:17 Sodium Chloride Flush Syringe 10 Ml IV Not Given BID TORRIE Sodium Chloride 10 ml 05/29/19 18:46 Sodium Chloride Flush Syringe 10 Ml IV PRN PRN LINE FLUSH Nutrition/Malnutrition Assess - Dietary Evaluation Nutrition/Malnutrition Findings: Nutrition Notes Start: 05/30/19 11:26 Freq: Status: Active Protocol: Document 05/30/19 11:26 LP (Rec: 05/30/19 11:32 LP [id number]) Nutrition Notes 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 Pt currently and stopped seizure medications. Pt states wt loss but could be from giving and . Pt states not eating well and would like a supplement. States being unable to afford Ensure shakes at home. Burn Absent Trauma Absent #1 Nutrition Diagnosis Increased nutrient needs ( specify in comment below) Comments: Kcal, protein and fluid Etiology exclusively As Evidenced by Signs and Symptoms Pt states not eating well but continues pumping breast for baby. Is patient on ventilator? No Is Patient Ambulatory and/or Out of Bed Yes REE-([place]-ambulatory/OOB) [ 1667.263 NUTR.MSJOOB] Kcal/Kg value to use for calculation 41 Approximate Energy Requirements Using 2139 kcal/Kg Additional Notes Protein needs are 52-62g (1-1. 2g/kg) Fluid needs are 1ml/kcal Nutrition Intervention Change Diet Order: Continue Add Supplement/Snack (indicate name/kcal Ensure Enlive BID Vanilla /protein ) Provides kCal: 700 Provides Protein (gm) 40 Goal #1 Meet at least 80% of kcal and protein needs Anticipated Discharge Needs: Regular with ONS BID and plenty of fluids Follow-Up By: 06/03/19 Additional Comments Follow for intakes, ONS tolerance
[2019-06-01] MEDS: ZOFRAN IV PRN ×2 (09:14→14:26)
[2019-06-01] MEDS: KEPPRA PO SCH ×2 (09:37→21:13)
[2019-06-01] MEDS: PEPCID IV SCH ×2 (09:38→21:14)
[2019-06-01] MEDS: SODIUM CHLORIDE FLUSH SYRINGE 10 ML IV SCH ×2 (09:38→21:14)
[2019-06-01] MEDS: NACL 0.9% 1000 ML 1,000 ML IV SCH (11:49)
--- NOTE | 2019-06-01 13:52 | Progress Note ---
Subjective Date of service: 06/01/19 Principal diagnosis: seizures, psychogenic spells Interval history: suspect anxiety triggering psychogenic seizure since xanax and benzo positive Objective - Vital Sign Vital Signs - 12hr 06/01/19 06/01/19 06/01/19 05:32 12:28 12:29 Temperature 97.6 F 98.1 F Pulse Rate 54 L 69 54 L Respiratory 15 18 Rate Blood Pressure 102/60 91/55 O2 Sat by Pulse 98 98 99 Oximetry - Laboratory Findings CBC and BMP: 05/30/19 00:47 05/30/19 05:53 Abnormal Lab Findings: Abnormal Labs 05/29/19 05/29/19 05/29/19 05:28 10:52 10:52 MCH [place] % (Auto) Eos % (Auto) Carbon Dioxide Creatinine 0.5 L Albumin Ur Specific [place] Salicylates < 0.3 L Acetaminophen < 5.0 L 05/29/19 05/30/19 05/30/19 11:45 00:47 05:53 MCH 33 H [place] % (Auto) 11.7 H Eos % (Auto) 6.2 H Carbon Dioxide 21 L Creatinine 0.5 L Albumin 3.7 L Ur Specific [place] 1.035 H Salicylates Acetaminophen
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
[2019-06-01 20:51] VITALS: BP 99/59
[2019-06-02] MEDS ORDERED: MIRALAX 3350 PO PRN (05:09)
[2019-06-02] MEDS ORDERED: DULCOLAX PR PRN (05:10)
[2019-06-02] MEDS: PEPCID IV SCH (09:16)
[2019-06-02] MEDS: KEPPRA PO SCH (09:16)
--- NOTE | 2019-06-02 09:30 | Discharge Summary ---
Providers - Providers Date of Admission: 05/29/19 11:59 Date of discharge: 06/02/19 Attending physician: RAZIA MITCHELL 05/29/19 18:46 Consult to Physician [CONS] Routine Comment: Consulting Provider: ETHAN MCMULLEN Physician Instructions: Reason For Exam: status epilepticus 05/31/19 11:45 Consult to Physician [CONS] Routine Comment: Consulting Provider: ISABELLA RAMAN Physician Instructions: Reason For Exam: Pseudo seizures 05/31/19 11:47 psychiatry consult [Consult to Mental Health] [CONS] Routine Reason For Exam: pseudo-seizures/for cognitive beh.thx[rec by Neuro Place consult to:: construction rep Notified:: Phone number called:: [phone] Was contact made?: No Time called:: 12:45 06/01/19 08:38 Physical Therapy Evaluation and Treat [CONS] Routine Comment: Reason For Exam: seizures/debility Primary care physician: NOLVIA MONTES Hospitalization Reason for admission: Witnessed seizures/status epilepticus Condition: Fair Pertinent studies: CT head without contrast; normal study no acute abnormality noted EEG; mildly abnormal awake and drowsy EEG due to intermittent right frontote mporal slowing Hospital course: 24-year-old -[place] female patient with significant past medical history of seizures was admitted through emergency room with recurrent seizures , patient was not competent with her Keppra because of her breast-feeding the baby who was 3 months old. Patient had [id number] seizures 2 seizures at home and 3-4 seizures in the emergency room Placed on seizure precautions started on Keppra as well as Ativan when necessary Evaluated by neurologist, CT head and EEG were obtained findings as mentioned above While on Keppra patient was having atypical intermittent seizures neurology evaluated feels psychogenic spells,patient was advised to see a psychiatrist As patient was concerned about taking Keppra during breast-feeding,Revieved the medication profile, consulted pharmacist, neurologists as well as BIOMEDICAL EQUIPMENT SUPPORT SPECIALIST. Everyone confirmed that it is safe to breast feed while on Keppra. Patient did not have any new episodes of seizures The same information was conveyed and discussed with the patient and the family members. They verbalized understanding The patient is stable at discharge Advised not to drive or operate heavy machinery Strongly advised to comply with medications, follow-up with neurologist per schedule Discharge diagnosis; -- Acute metabolic encephalopathy Current Visit: Yes Status: Acute Plan to address problem: Secondary to seizures,possible post ictal; resolved Patient more alert and awake , ambulated with her boyfriend Holding onto the IV pole, new episodes of seizures today seizure precautions, neurology did not want Ativan Do not drive -- Status epilepticus Current Visit: Yes Status: Acute Plan to address problem: On Keppra, seizure precautions, Neurology following, Patient can breast feed on Keppra per neuro --possible pseudoseizures per Neuro Neuro recommend psychiatry evaluation For cognitive behavioral therapy Follow psych evaluation and recommendations -- DVT prophylaxis Current Visit: Yes Status: Acute Plan to address problem: Lovenox Advised the patient not to drive until cleared by PMD or urologist Seizure precautions, Stable at discharge Disposition: DC-01 TO HOME OR SELFCARE Time spent for discharge: 32 min Core Measure Documentation - Palliative Care Palliative Care/ Comfort Measures: Not Applicable - Core Measures Any of the following diagnoses?: none Exam - Constitutional Vitals: Temp Pulse Resp BP Pulse Ox 98.6 F 70 20 99/59 97 06/01/19 20:41 06/01/19 20:41 06/01/19 20:41 06/01/19 20:41 06/01/19 20:41 General appearance: Present: no acute distress, well-nourished - EENT Eyes: Present: PERRL, EOM intact - Neck Neck: Present: supple, normal ROM - Respiratory Respiratory effort: normal Respiratory: negative: rales, rhonchi, wheezing - Cardiovascular Rhythm: regular Heart Sounds: Present: S1 & S2 - Extremities Extremities: no ischemia, No edema - Abdominal General gastrointestinal: Present: soft, non-tender, non-distended, normal bowel sounds - Integumentary Integumentary: Present: clear, warm - Musculoskeletal Musculoskeletal: strength equal bilaterally - Psychiatric Psychiatric: appropriate mood/affect, cooperative - Neurologic Neurologic: moves all extremities Plan Activity: advance as tolerated, no driving until cleared by PCP, other (seizure precautions) Diet: regular Additional Instructions: Follow PRICING ASSOCIATE as scheduled. Advised to see [facility] in 3-5 days. Checked with Neurology/pharmacy/PRICING ASSOCIATE .they reported that Keppra is safe during breast feeding. Seizure precautions. Do not DRIVE until cleared by PMD/Neurology. Consent Follow up with: NOLVIA MONTES MD [Primary Care Provider] - 3-5 Days BLANCA SOUZA MD [Staff Physician] - 7 Days Prescriptions: Docusate Sodium [Colace CAP] 100 mg PO BID PRN #20 capsule PRN Reason: Constipation levETIRAcetam [Keppra TAB] 750 mg PO BID #60 tablet
[2019-06-02] MEDS ORDERED: MILK OF MAGNESIA PO ONE (09:42)
[2019-06-02] MEDS ORDERED: COLACE PO SCH (10:00)
[2019-06-02] MEDS: SODIUM CHLORIDE FLUSH SYRINGE 10 ML IV SCH (15:17)
== END 2019-06-02 12:30 | disposition home or self-care (01) ==
LOC: ED 04:39 → 3A 11:59
PROVIDERS: ADMIT Internal Medicine; ATTEND Internal Medicine
DX: G40.901 Epilepsy, unspecified, not intractable, with status epilepticus (principal); G93.40 Encephalopathy, unspecified
CPT/HCPCS: 36415; 70450; 80048; 80053; 80307; 81001; 82550; 82962; 83036; 84146; 84703; 85025; 85027; 87116; 93005; 93010; 95819; 96365; 96375; 96376; 99291; G0378; J1953; J2060; J2405; J7030; 80320; G0480

== ENCOUNTER 2021-01-03 17:54 | Outpatient (CLI) | payer OTHER ==
[2021-01-03 18:21] VITALS: BP 99/57
== END 2021-01-03 20:15 | disposition home or self-care (01) ==
LOC: TRG 17:54 → APU 17:55 → TRG 20:15
PROVIDERS: ATTEND Obstetrics & Gynecology
DX: O47.03 False labor before 37 completed weeks of gestation, third trimester (principal); Z3A.37 37 weeks gestation of pregnancy
CPT/HCPCS: 59025

== ENCOUNTER 2021-01-21 23:54 | Inpatient (IN) | payer OTHER ==
[2021-01-22] MEDS ORDERED: fentaNYL 100 MCG/2 ML INJ IV PRN (01:48)
[2021-01-22] MEDS ORDERED: BUTORPHANOL 2 MG/1 ML INJ IV PRN ×2 (01:48)
[2021-01-22] MEDS ORDERED: MINERAL OIL 30 ML ORAL LIQD PO PRN (01:48)
[2021-01-22] MEDS ORDERED: TERBUTALINE 1 MG/1 ML INJ SUB-Q PRN (01:48)
[2021-01-22] MEDS ORDERED: ePHEDrine SULFATE 50 MG/1 ML INJ IV PRN ×2 (01:48→09:09)
[2021-01-22] MEDS ORDERED: LIDOCAINE (2%) 20 MG/1 ML VIAL 20 ML MDV INFILTRATI ONE (01:48)
[2021-01-22] MEDS ORDERED: OXYTOCIN DRIP 30 UNITS/500 ML BAG IV SCH ×3 (02:00→14:49)
--- NOTE | 2021-01-22 02:18 | History and Physical Report ---
History of Present Illness Date of examination: 01/22/21 Date of admission: 01/22/21 Chief complaint: c/o uc times last several hours History of present illness: 25 y/o presents to ob triage @ 40 2/7 wks with c/o uc times several hours. She denies LOF or VB and admits to active FM. Pt initiated her pnc at [facility] at 7 6/7 wks. Pt has a medical hx of depression, anxiety, scoliosis, anemia, and seizures. Pt's last seizure was in Nov 2015. She sees Dr Jarvis @ [place] and takes Zonisamide 100mg po q hs. Surgical hx includes 1 D&C. Neg social hx. Family hx of schizophrenia, htn, aids, and asthma. Pt's GBS is neg. She was found to be jazzy in early labor, and was admitted to L&D for delivery. A psych consult was ordered for pt to be seen post delivery. Labs: A pos AB screen neg Rubella and Varicella-I VDRL- NR HBsAg- neg HIV-neg Hgb EE- AA GC/CHLAM/TRICH-neg Vit D- 30.2 MSAFP-neg Hgb- 8.3 @ 28 wks 1hr GTT-97 GBS- neg Past History Past Medical History: seizure (ANXIETY, DEPRESSION, ANEMIA, SCOLIOSIS,), other Past Surgical History: D&C Family/Genetic History: hypertension, other (ASTHMA, AIDS,SCHIZOPHRENIA, ) Social history: single, full code - Obstetrical History Expected Date of Delivery: 01/20/21 Actual Gestation: 40 Week(s) 2 Day(s) : 4 Para: 2 Hx # Term Pregnancies: 2 Number of Pregnancies: 0 Spontaneous Abortions: 0 Induced : 1 Number of Living Children: 2 Medications and Allergies Allergies Allergy/AdvReac Type Severity Reaction Status Date / Time onion AdvReac Itching Verified 01/03/21 18:15 pineapple AdvReac Itching Verified 01/03/21 18:15 Home Medications Medication Instructions Recorded Confirmed Last Taken Type Docusate Sodium [Colace CAP] 100 mg PO BID PRN #20 capsule 06/02/19 Unknown Rx levETIRAcetam [Keppra TAB] 750 mg PO BID #60 tablet 06/02/19 Unknown Rx Active Meds: Active Medications Butorphanol Tartrate (Butorphanol 2 Mg/1 Ml Inj) 1 mg IV Q2H PRN PRN Reason: Pain, Moderate(4-6) LABOR PAIN Butorphanol Tartrate (Butorphanol 2 Mg/1 Ml Inj) 2 mg IV Q2H PRN PRN Reason: Pain , Severe (7-10) Ephedrine Sulfate (Ephedrine Sulfate 50 Mg/1 Ml Inj) 10 mg IV Q2M PRN PRN Reason: Hypotension Fentanyl (Fentanyl 100 Mcg/2 Ml Inj) 100 mcg IV Q2H PRN PRN Reason: Pain,Severe (7-10) LABOR PAIN Oxytocin/Sodium Chloride (Pitocin/Ns 30 Unit/500ml) 30 units in 500 mls @ 2 mls/hr IV TITR TORRIE; Protocol Lactated Ringer's (Lactated Ringers) 1,000 mls @ 125 mls/hr IV DIRECT TORRIE Oxytocin/Sodium Chloride (Pitocin/Ns 30 Unit/500ml) 30 units in 500 mls @ 40 mls/hr IV TITR TORRIE; Protocol Lidocaine (Lidocaine (2%) 20 Mg/1 Ml Vial 20 Ml Mdv) 20 ml INFILTRATI ONCE ONE Stop: 01/22/21 01:49 Mineral Oil (Mineral Oil 30 Ml Oral Liqd) 30 ml PO QHS PRN PRN Reason: Constipation Terbutaline Sulfate (Terbutaline 1 Mg/1 Ml Inj) 0.25 mg SUB-Q ONCE PRN PRN Reason: Hyperstimulation/Hypertonicity Review of Systems All systems: negative Eyes: deferred Ears, nose, mouth and throat: deferred Breasts: normal Genitourinary: normal appearance Rectal Exam: deferred - Vital Signs Vital signs: Vital Signs Pulse BP 110 H 110/67 01/22/21 00:10 01/22/21 00:10 Temp Pulse Resp BP Pulse Ox 98.5 F 116 H 18 110/67 99 01/22/21 00:12 01/22/21 00:51 01/22/21 00:12 01/22/21 00:12 01/22/21 00:51 - Physical Exam Breasts: Positive: normal Abdomen: Positive: normal appearance, soft, normal bowel sounds Genitourinary (Female): Positive: normal external genitalia, normal perenium Vulva: both: normal Vagina: Positive: normal moisture Uterus: Positive: enlarged, normal contour, other (GRAVID) Adnexa: both: normal Anus/Rectum: Positive: normal perianal skin Extremities: Positive: normal - Obstetrical FHR: auscultation normal, category 1 Uterine Contraction Monitor Mode: External Cervical Dilatation: 4 (PER NURSE) Cervical Effacement Percentage: 50 (PER NURSE) station: -3 Uterine Contraction Pattern: Regular Uterine Tone Measurement Phase: Resting Uterine Contraction Intensity: Mild Results All other labs normal. Assessment and Plan A: IUP@ 40 2/7 wks Hx of seizures Anxiety and depression Scoliosis, Anemia P: Admit to L&D Continuous monitoring Pain med/Epidural prn Psych consult ordered for pp Anticipate
[2021-01-22] MEDS: LACTATED RINGERS 1,000 ML IV SCH ×2 (02:56→07:33)
--- NOTE | 2021-01-22 03:08 | Event Note ---
Date: 01/22/21 Pt states she takes Zonisamide 100mg po q hs for seizures. Pharmacy states med is a non formulary. Pt was advised to obtain med from home and give it to the nurse. Pharmacy states med needs to be checked and labeled before pt can take it.
[2021-01-22 04:55] LABS: Hematocrit 28.8 % (30.3-42.9); Hemoglobin 9.6 gm/dl (10.1-14.3); Red Blood Count 3.1 M/mm3 (3.65-5.03)
[2021-01-22 04:56] LABS: Mean Platelet Volume 8.7 fl (6-12); Red Cell Distribution Width 15.2 % (13.2-15.2)
--- NOTE | 2021-01-22 08:23 | Anesthesia Consultation ---
Anesthesia Consult and Med Hx Date of service: 01/22/21 - Airway Anesthetic Teeth Evaluation: Poor ROM Head & Neck: Adequate Mental/Hyoid Distance: Adequate Mallampati Class: Class II Intubation Access Assessment: Probably Good - Pulmonary Exam CTA: Yes - Cardiac Exam Cardiac Exam: RRR - Pre-Operative Health Status ASA Pre-Surgery Classification: ASA2 Proposed Anesthetic Plan: Epidural - Pulmonary Hx Smoking: No Hx Asthma: No Hx Respiratory Symptoms: No SOB: No COPD: No Home Oxygen Therapy: No Hx Pneumonia: No Hx Sleep Apnea: No - Cardiovascular System Hx Hypertension: No Hx Coronary Artery Disease: No Hx Heart Attack/AMI: No Hx Angina: No Hx Percutaneous Transluminal Coronary Angioplasty (PTCA): No Hx Cardia Arrhythmia: No Hx Pacemaker: No Hx Internal Defibrillator: No Hx Valvular Heart Disease: No Hx Heart Murmur: No Hx Peripheral Vascular Disease: No - Central Nervous System Hx Neuromuscular Disorder: No Hx Seizures: Yes (last attack 1 year ago) CVA: No Hx Back Pain: No Hx Psychiatric Problems: Yes ( depression, anxiety, depression) - Gastrointestinal Hx Ulcer: No Hx Gastroesophageal Reflux Disease: Yes - Endocrine Hx Renal Disease: No Hx End Stage Renal Disease: No Hx Cirrhosis: No Hx Liver Disease: No Hx Insulin Dependent Diabetes: No Hx Non-Insulin Dependent Diabetes: No Hx Thyroid Disease: No Hx Hypothyroidism: No Hx Hyperthyroidism: No - Hematic Hx Anemia: Yes (on meds) Hx Sickle Cell Disease: No - Other Systems Hx Alcohol Use: No Hx Substance Use: No Hx Cancer: No Hx Obesity: Yes
--- NOTE | 2021-01-22 08:24 | Progress Note ---
Labor Epidural - Labor Epidural Start Time: 08:00 Stop Time: 08:12 Performed by:: GM CELESTE Procedure: Patient is requesting a laboring epidural for laboring pain. Patient IDed, H&P reviewed, all questions and concerns were answered, and consent was signed. Timeout was performed at bedside. Patient in sitting position. Sterile prep and drape was performed. [3] ml of 1% lidocaine skin wheal at L[4]- L [5]. 18- gauge Tuohy epidural needle was advanced to loss of resistance with saline technique 5cm. Negative CSF negative blood. Epidural catheter advanced to [12] centimeters. [NEGATIVE] Aspiration [NEGATIVE] test dose. Sterile dressing applied. Patient tolerated procedure.
[2021-01-22] MEDS ORDERED: NALOXONE 2 MG/2 ML INJ IV PRN (09:09)
[2021-01-22] MEDS ORDERED: fentaNYL-BUPIV 2 MCG/ML-0.125% 200 MCG/100 ML BAG EPIDURAL SCH (10:00)
[2021-01-22] MEDS ORDERED: ceFAZolin/Water 2 GM/20 ML 2 GM/20 ML SYRINGE IV ONE (10:51)
[2021-01-22] MEDS ORDERED: SODIUM CHLORIDE 0.9% IRR 1,500 ML BOTTLE IR ONE (10:57)
[2021-01-22] MEDS ORDERED: LIDOCAINE MPF (2%) 20 MG/1 ML VIAL 5 ML ONE ×2 (10:58)
[2021-01-22] MEDS ORDERED: WATER FOR IRRIG STERILE 1,500 ML BOTTLE IR ONE (10:58)
[2021-01-22] MEDS ORDERED: KETOROLAC 30 MG/1 ML INJ ONE (11:08)
[2021-01-22] MEDS ORDERED: ONDANSETRON 4 MG/2 ML INJ ONE ×2 (11:08)
[2021-01-22] MEDS ORDERED: miSOPROStol 200 MCG TAB ONE (12:13)
[2021-01-22] MEDS ORDERED: BUPIVACAINE/PF (0.5%) 5 MG/1 ML 30 ML VIAL INFILTRATI ONE (12:26)
[2021-01-22] MEDS ORDERED: dexAMETHasone 20 MG/5 ML VIAL ONE (12:26)
[2021-01-22] MEDS ORDERED: SODIUM CHLORIDE 0.9% 100 ML ONE (12:35)
--- NOTE | 2021-01-22 12:49 | Event Note ---
Date: 01/22/21 pt evaluated after nurse called me at 9:28am with category II tracing. Pt seen and pelvic 6100/-1 with bulging bag. AROM done with clear fluid at 9:35am. IUPC placed and FSE placed with FHR in 100's and pt already on oxygen via facemask. Scalp stimulation of fetus with good response. Pt had received epidural and still feeling pain, and nurse started same. Pt also given terbutaline for tacchysystole with fundus firm and not returning to baseline. IV pitocin was already off previously at 4mu/min per nurse report. Plan of care discussed with pt with possible section if FHR remains category II or worsens to category III. I later returned to the room when charge nurse stated pt is refusing to have a section with bradycardia. I returned and discussed risks, benefits and alternatives of the procedure and patient signed consent. FOB present in the room and asked to encouraged concerning her current category III FHR remote from delivery and cervix anteriorly very swollen and prolapsed. Anesthesiologist notified and NICU in preparation for emergent section. All questions encouraged and answered and pt pushed in stretcher by nurse and me.
[2021-01-22] MEDS ORDERED: miSOPROStol 200 MCG TAB PR ONE (13:00)
--- NOTE | 2021-01-22 13:04 | Procedure Note ---
OB Delivery Note - Delivery Date of Delivery: 01/22/21 Surgeon: ELLEN EVERETT Estimated blood loss: other (700cc) - Section Preop diagnosis: nonreassuring FHR tracing Postop diagnosis: same (and persistent O-P presentation) section procedure: primary low transverse Disposition: floor Complications: none Narrative: Date: 01/22/21 Surgeon: Ellen Everett MD Preop Dx: Term IUP at 40.2wks with category III FHR remote from delivery, Occiput posterior presentation Postop Dx: same Procedure : Emergent Primary Low Transverse section Anesthesia: Epidural Intake: 1000cc crystalloids Output: 550cc clear EBL: 700cc per anesthesia After the risks, benefits and alternatives of procedure discussed, patient signed consents and was taken to the operating room. Pt was already with epidural anesthesia. After same was adequate, patient was prepped and draped in the usual sterile fashion. Bar catheter in place and draining concentrated urine. Pt was given prophylactic antibiotic per protocol and time out was done Pfannenstiel skin incision was made and taken sharply to the fascia and the incision extended manually. Superior edge of the fascia was grasped with ryder clamps and the rectus muscle using blunt dissection. Rectus muscle in the midline and Peritoneal cavity entered bluntly and extended with good visualization of the bladder. The bladder flap was created sharply and extended manually. Lower uterine segment was then cut sharply, transversely and amniotic sac entered using allys clamps. Uterine incision extended bilaterally by manual separation. Infant delivered, bulb suctioned, cord clamped and baby handed to waiting pediatricians. Placenta then delivered completely and uterine cavity cleared of all clots and debri. The uterus was not exteriorized and closed in 2 layers using 0-monocryl suture in a running locked fashion and then an additional layer of imbrication suture. Excellent hemostasis noted. The gutters were cleared of clots and debri and anterior peritoneum closed using 3-0 vicryl suture and rectus muscle reapproximated using 0-monocryl suture in a running fashion.Rectus fascia closed with 0-vicryl suture and subcutaneous tissue copiously irrigated with normal saline and re-approximated using 3-0 vicr yl suture. Excellent hemostasis remains. The skin was closed with 4-0 monocryl suture and steristrips placed with pressure dressing. Sponge, lap, instrument and needle counts x2 were normal. Patient tolerated the procedure well and was taken to recovery room stable. Pt was given cytotec 800mcg prophylaxis with brethine given just prior to delivery. Findings: Viable male infant, APGARS 8/9 and weight 3357g. Umbilical artery pH 7.26 and BE-5; Clear amniotic fluid. Normal uterus, tubes and ovaries. - A at 1 minute: 8 at 5 minutes: 9 Gender: Male (wt 3357g; Umbilical artery pH 7.26; BE -5)
--- NOTE | 2021-01-22 13:05 | Anesthesia Day of Surgery ---
Anesthesia Day of Surgery - Day of Surgery Patient Examined: Yes Patient H&P Reviewed: Yes Patient is NPO: Yes Beta Blockers: No Cardiac Clearance: No Pulmonary Clearance: No Rashawn's Test: N/A
--- NOTE | 2021-01-22 13:07 | Progress Note ---
Objective - Constitutional Vitals: Vital Signs - 12hr 01/22/21 01/22/21 01/22/21 02:16 02:22 02:27 Temperature Pulse Rate 114 H 77 92 H Respiratory Rate Blood Pressure Blood Pressure [Left] O2 Sat by Pulse 100 100 99 Oximetry 01/22/21 01/22/21 01/22/21 02:30 02:32 02:33 Temperature 98.3 F Pulse Rate 71 72 62 Respiratory 12 Rate Blood Pressure 104/65 Blood Pressure 106/65 [Left] O2 Sat by Pulse 100 99 Oximetry 01/22/21 01/22/21 01/22/21 02:37 02:42 02:47 Temperature Pulse Rate 92 H 92 H 79 Respiratory Rate Blood Pressure Blood Pressure [Left] O2 Sat by Pulse 99 98 98 Oximetry 01/22/21 01/22/21 01/22/21 02:52 02:57 03:02 Temperature Pulse Rate 79 75 95 H Respiratory Rate Blood Pressure Blood Pressure [Left] O2 Sat by Pulse 97 99 99 Oximetry 01/22/21 01/22/21 01/22/21 03:07 03:09 03:12 Temperature Pulse Rate 88 33 L 95 H Respiratory Rate Blood Pressure Blood Pressure [Left] O2 Sat by Pulse 99 88 99 Oximetry 01/22/21 01/22/21 01/22/21 03:17 03:22 03:27 Temperature Pulse Rate 81 110 H 97 H Respiratory Rate Blood Pressure Blood Pressure [Left] O2 Sat by Pulse 98 99 98 Oximetry 01/22/21 01/22/21 01/22/21 03:32 03:37 03:42 Temperature Pulse Rate 78 93 H 79 Respiratory Rate Blood Pressure Blood Pressure [Left] O2 Sat by Pulse 98 99 97 Oximetry 01/22/21 01/22/21 01/22/21 03:47 03:52 03:57 Temperature Pulse Rate 79 90 72 Respiratory Rate Blood Pressure Blood Pressure [Left] O2 Sat by Pulse 99 98 98 Oximetry 01/22/21 01/22/21 01/22/21 04:02 04:07 04:12 Temperature Pulse Rate 106 H 72 94 H Respiratory Rate Blood Pressure Blood Pressure [Left] O2 Sat by Pulse 98 98 98 Oximetry 01/22/21 01/22/21 01/22/21 04:17 04:22 04:27 Temperature Pulse Rate 101 H 80 72 Respiratory Rate Blood Pressure Blood Pressure [Left] O2 Sat by Pulse 99 99 99 Oximetry 01/22/21 01/22/21 01/22/21 04:32 04:37 04:42 Temperature Pulse Rate 90 70 77 Respiratory Rate Blood Pressure Blood Pressure [Left] O2 Sat by Pulse 99 98 97 Oximetry 01/22/21 01/22/21 01/22/21 04:47 04:52 04:57 Temperature Pulse Rate 79 79 95 H Respiratory Rate Blood Pressure Blood Pressure [Left] O2 Sat by Pulse 98 99 98 Oximetry 01/22/21 01/22/21 01/22/21 05:10 05:11 05:15 Temperature Pulse Rate 94 H 90 71 Respiratory Rate Blood Pressure 128/65 Blood Pressure [Left] O2 Sat by Pulse 0 L 99 Oximetry 01/22/21 01/22/21 01/22/21 05:20 05:25 05:30 Temperature Pulse Rate 63 74 73 Respiratory Rate Blood Pressure Blood Pressure [Left] O2 Sat by Pulse 99 98 98 Oximetry 01/22/21 01/22/21 01/22/21 05:35 05:40 05:45 Temperature Pulse Rate 86 86 107 H Respiratory Rate Blood Pressure Blood Pressure [Left] O2 Sat by Pulse 98 97 98 Oximetry 01/22/21 01/22/21 01/22/21 05:50 05:55 06:00 Temperature Pulse Rate 74 82 82 Respiratory Rate Blood Pressure Blood Pressure [Left] O2 Sat by Pulse 97 97 98 Oximetry 01/22/21 01/22/21 01/22/21 06:05 06:10 06:15 Temperature Pulse Rate 98 H 65 71 Respiratory Rate Blood Pressure Blood Pressure [Left] O2 Sat by Pulse 97 97 98 Oximetry 01/22/21 01/22/21 01/22/21 06:20 06:25 06:30 Temperature Pulse Rate 83 71 66 Respiratory Rate Blood Pressure Blood Pressure [Left] O2 Sat by Pulse 97 98 98 Oximetry 01/22/21 01/22/21 01/22/21 06:35 06:39 06:40 Temperature Pulse Rate 87 52 L 82 Respiratory Rate Blood Pressure Blood Pressure [Left] O2 Sat by Pulse 100 78 L 98 Oximetry 01/22/21 01/22/21 01/22/21 06:45 06:50 06:55 Temperature Pulse Rate 108 H 109 H 94 H Respiratory Rate Blood Pressure Blood Pressure [Left] O2 Sat by Pulse 98 100 99 Oximetry 01/22/21 01/22/21 01/22/21 07:00 07:01 07:05 Temperature Pulse Rate 76 88 87 Respiratory Rate Blood Pressure Blood Pressure [Left] O2 Sat by Pulse 96 92 98 Oximetry 01/22/21 01/22/21 01/22/21 07:10 07:15 07:20 Temperature Pulse Rate 103 H 83 72 Respiratory Rate Blood Pressure Blood Pressure [Left] O2 Sat by Pulse 98 98 98 Oximetry 01/22/21 01/22/21 01/22/21 07:25 07:30 07:35 Temperature Pulse Rate 102 H 104 H 102 H Respiratory Rate Blood Pressure Blood Pressure [Left] O2 Sat by Pulse 100 98 98 Oximetry 01/22/21 01/22/21 01/22/21 07:40 07:45 07:50 Temperature Pulse Rate 86 108 H 103 H Respiratory Rate Blood Pressure Blood Pressure [Left] O2 Sat by Pulse 97 99 98 Oximetry 01/22/21 01/22/21 01/22/21 07:55 07:58 08:00 Temperature Pulse Rate 101 H 96 H 106 H Respiratory Rate Blood Pressure 125/60 Blood Pressure [Left] O2 Sat by Pulse 98 98 Oximetry 01/22/21 01/22/21 01/22/21 08:05 08:06 08:08 Temperature Pulse Rate 62 103 H 81 Respiratory Rate Blood Pressure 124/62 Blood Pressure [Left] O2 Sat by Pulse 82 L 98 Oximetry 01/22/21 01/22/21 01/22/21 08:10 08:11 08:13 Temperature Pulse Rate 86 82 73 Respiratory Rate Blood Pressure 124/56 132/63 Blood Pressure [Left] O2 Sat by Pulse 99 Oximetry 01/22/21 01/22/21 01/22/21 08:14 08:16 08:17 Temperature Pulse Rate 79 77 78 Respiratory Rate Blood Pressure 130/62 131/63 Blood Pressure [Left] O2 Sat by Pulse 98 Oximetry 01/22/21 01/22/21 01/22/21 08:18 08:20 08:21 Temperature Pulse Rate 69 70 70 Respiratory Rate Blood Pressure 113/63 111/69 Blood Pressure [Left] O2 Sat by Pulse 97 Oximetry 01/22/21 01/22/21 01/22/21 08:22 08:24 08:26 Temperature Pulse Rate 71 71 69 Respiratory Rate Blood Pressure 124/74 120/59 105/55 Blood Pressure [Left] O2 Sat by Pulse 97 Oximetry 01/22/21 01/22/21 01/22/21 08:28 08:30 08:31 Temperature Pulse Rate 79 70 71 Respiratory Rate Blood Pressure 107/59 104/59 Blood Pressure [Left] O2 Sat by Pulse 97 Oximetry 01/22/21 01/22/21 01/22/21 08:32 08:34 08:36 Temperature Pulse Rate 74 72 75 Respiratory Rate Blood Pressure 109/62 112/66 109/64 Blood Pressure [Left] O2 Sat by Pulse 98 Oximetry 01/22/21 01/22/21 01/22/21 08:38 08:40 08:41 Temperature Pulse Rate 77 74 72 Respiratory Rate Blood Pressure 126/71 111/55 Blood Pressure [Left] O2 Sat by Pulse 97 Oximetry 01/22/21 01/22/21 01/22/21 08:42 08:44 08:46 Temperature Pulse Rate 74 71 61 Respiratory Rate Blood Pressure 112/55 107/57 110/58 Blood Pressure [Left] O2 Sat by Pulse 97 Oximetry 01/22/21 01/22/21 01/22/21 08:48 08:50 08:51 Temperature Pulse Rate 72 71 73 Respiratory Rate Blood Pressure 107/58 105/58 Blood Pressure [Left] O2 Sat by Pulse 99 Oximetry 01/22/21 01/22/21 01/22/21 08:52 08:54 08:56 Temperature Pulse Rate 74 76 66 Respiratory Rate Blood Pressure 110/56 105/56 111/68 Blood Pressure [Left] O2 Sat by Pulse 99 Oximetry 01/22/21 01/22/21 01/22/21 08:58 09:00 09:01 Temperature Pulse Rate 71 68 70 Respiratory Rate Blood Pressure 108/66 100/57 Blood Pressure [Left] O2 Sat by Pulse 100 Oximetry 01/22/21 01/22/21 01/22/21 09:02 09:04 09:06 Temperature Pulse Rate 65 68 75 Respiratory Rate Blood Pressure 103/59 108/63 102/47 Blood Pressure [Left] O2 Sat by Pulse 100 Oximetry 01/22/21 01/22/21 01/22/21 09:08 09:10 09:11 Temperature Pulse Rate 75 64 64 Respiratory Rate Blood Pressure 112/58 106/71 Blood Pressure [Left] O2 Sat by Pulse 100 Oximetry 01/22/21 01/22/21 01/22/21 09:12 09:14 09:16 Temperature Pulse Rate 65 67 74 Respiratory Rate Blood Pressure 106/69 106/72 106/65 Blood Pressure [Left] O2 Sat by Pulse 100 Oximetry 01/22/21 01/22/21 01/22/21 09:18 09:20 09:21 Temperature Pulse Rate 67 75 78 Respiratory Rate Blood Pressure 102/60 108/66 Blood Pressure [Left] O2 Sat by Pulse 100 Oximetry 01/22/21 01/22/21 01/22/21 09:22 09:24 09:26 Temperature Pulse Rate 79 73 62 Respiratory Rate Blood Pressure 107/74 111/65 100/57 Blood Pressure [Left] O2 Sat by Pulse 100 Oximetry 01/22/21 01/22/21 01/22/21 09:28 09:30 09:31 Temperature Pulse Rate 65 71 77 Respiratory Rate Blood Pressure 109/63 115/66 Blood Pressure [Left] O2 Sat by Pulse 100 Oximetry 01/22/21 01/22/21 01/22/21 09:32 09:35 09:36 Temperature Pulse Rate 89 90 73 Respiratory Rate Blood Pressure 129/85 112/54 112/61 Blood Pressure [Left] O2 Sat by Pulse 100 Oximetry 01/22/21 01/22/21 01/22/21 09:38 09:40 09:41 Temperature Pulse Rate 82 176 H 85 Respiratory Rate Blood Pressure 109/57 113/55 Blood Pressure [Left] O2 Sat by Pulse 100 Oximetry 01/22/21 01/22/21 01/22/21 09:42 09:44 09:46 Temperature Pulse Rate 87 78 74 Respiratory Rate Blood Pressure 108/63 108/65 Blood Pressure [Left] O2 Sat by Pulse 100 Oximetry 01/22/21 01/22/21 01/22/21 09:48 09:50 09:51 Temperature Pulse Rate 88 86 123 H Respiratory Rate Blood Pressure 108/58 113/61 Blood Pressure [Left] O2 Sat by Pulse 100 Oximetry 01/22/21 01/22/21 01/22/21 09:52 09:54 09:56 Temperature Pulse Rate 113 H 103 H 81 Respiratory Rate Blood Pressure 109/61 109/61 113/61 Blood Pressure [Left] O2 Sat by Pulse 100 Oximetry 01/22/21 01/22/21 01/22/21 10:01 10:06 10:11 Temperature Pulse Rate 102 H 124 H 80 Respiratory Rate Blood Pressure Blood Pressure [Left] O2 Sat by Pulse 100 100 100 Oximetry 01/22/21 01/22/21 01/22/21 10:13 10:16 10:21 Temperature Pulse Rate 73 89 90 Respiratory Rate Blood Pressure 110/54 Blood Pressure [Left] O2 Sat by Pulse 100 100 Oximetry 01/22/21 01/22/21 01/22/21 10:26 10:28 10:31 Temperature Pulse Rate 82 113 H 90 Respiratory Rate Blood Pressure 89/60 Blood Pressure [Left] O2 Sat by Pulse 100 100 Oximetry 01/22/21 10:36 Temperature Pulse Rate 115 H Respiratory Rate Blood Pressure Blood Pressure [Left] O2 Sat by Pulse 100 Oximetry - Labs CBC & Chem 7: 01/22/21 01:52 Labs: Abnormal lab results 01/22/21 01/22/21 Range/Units 01:52 11:16 RBC 3.10 L (3.65-5.03) M/mm3 Hgb 9.6 L (10.1-14.3) gm/dl Hct 28.8 L (30.3-42.9) % ABG pH 7.266 L (7.320-7.450) POC ABG pCO2 50.1 H (32.0-48.0) mmHg POC ABG pO2 19.0 L (83-108) mmHg ABG Oxyhemoglobin 32.5 L (94-98) ABG Sodium 132.3 L (136.0-145.0) mmol/L Arterial Blood Ionized Calcium 5.5 H (4.6-5.3) mg/dL Regional Anesthesia Block - Regional Anesthesia Block Start Time: 12:27 Stop Time: 12:30 Performed By:: GM CELESTE Procedure: Patient consented for TAP block for post surgical pain management. Patient identified, monitors placed, and time out performed. TAP identified bilaterally via ultrasound. Skin prepped bilaterally with [chlorhexidine] and [22g stimuplex] needle advanced to the TAP. [Marcaine 0.22% 35ml] injected under ultrasound guidance on the [left] side. [Marcaine 0.22% 35ml] injected under ultrasound guidance on the [right] side. Negative aspiration every 5mL, No change in heart rate or rhythm. Patient tolerated the procedure well. No apparent complications seen.
[2021-01-22] MEDS ORDERED: MORPHINE 4 MG/1 ML INJ IV PRN (14:49)
[2021-01-22] MEDS ORDERED: WITCH HAZEL/ GLYCERIN PAD TP PRN (14:49)
[2021-01-22] MEDS ORDERED: NALOXONE 0.4 MG/1 ML INJ IV PRN (14:49)
[2021-01-22] MEDS ORDERED: KETOROLAC 30 MG/1 ML INJ IV PRN (14:49)
[2021-01-22] MEDS ORDERED: LANOLIN/ZINC/DIMETHICONE (LANSINOH) 7 GM TP PRN (14:49)
[2021-01-22] MEDS ORDERED: MAGNESIUM HYDROXIDE (MOM) ORAL LIQD UDC PO PRN (14:49)
[2021-01-22] MEDS ORDERED: SIMETHICONE 80 MG CHEW TAB PO PRN (14:49)
[2021-01-22] MEDS ORDERED: ONDANSETRON 4 MG/2 ML INJ IV PRN (14:49)
[2021-01-22] MEDS: ceFAZolin/NS 1 GM/50 ML 1 GM/50 ML BAG IV SCH (16:40)
--- NOTE | 2021-01-22 21:49 | Event Note ---
Date: 01/22/21 Nurse called after patient transferred to the floor for evaluation of patient's bleeding. Pt seen and examined and lochia small and dark in color. Uterine prolapse with cervix to the introitus and fundus at the umbilicus. Abdomen soft and non-distended. Dressing clean, dry and intact and left side to be reinforced with the tape lifting and nurse notified and asked to reinforce this side. At this time I was also told by the nurse and pt confirms that she has a history of seizure disorder and takes a med not available at this hospital. The partner of pt sent home to get this med and resume same. pt also added that she has adverse reaction with keppra. Order to be sent to pharm so that pt can continue her home med. All questions encouraged and answered and pt remains comfortable postop
[2021-01-22] MEDS ORDERED: levETIRAcetam 500 MG TAB PO SCH (22:00)
[2021-01-22] MEDS ORDERED: ZONISAMIDE 100 MG PO SCH (22:00)
[2021-01-22] MEDS: IBUPROFEN 800 MG TAB PO PRN (22:08)
[2021-01-23] MEDS: ceFAZolin/NS 1 GM/50 ML 1 GM/50 ML BAG IV SCH ×2 (00:40→03:11)
[2021-01-23] MEDS: oxyCODONE /ACETAMINOPHEN 5-325MG TAB PO PRN ×3 (01:10→18:18)
--- NOTE | 2021-01-23 06:20 | Progress Note ---
Assessment and Plan A: /postop day 1 S/P primary LTCS. Anemia. P: Continue oral iron supplementation. Encouraged patient to ambulate. Subjective - Subjective Date of service: 01/23/21 Principal diagnosis: /postop day 1 S/P primary LTCS Interval history: Passing gas, tolerating regular food, ambulating without difficulty, voiding without difficulty. Patient reports: appetite normal, voiding normally, pain well controlled, flatus, ambulating normally, no dizzy ambulation, no nauseated : doing well Objective - Vital Signs Latest vital signs: Vital Signs Temp Pulse Resp BP BP Pulse Ox 01/23/21 02:09 98.6 F 70 16 106/53 01/23/21 01:10 18 01/22/21 22:08 18 01/22/21 21:23 98.6 F 74 16 103/57 01/22/21 16:35 98.6 F 77 18 107/65 97 01/22/21 14:21 99.4 F 77 18 102/84 97 01/22/21 12:25 97.8 F 65 12 95/37 100 01/22/21 10:36 115 H 100 01/22/21 10:31 90 100 01/22/21 10:28 113 H 89/60 01/22/21 10:26 82 100 01/22/21 10:21 90 100 01/22/21 10:16 89 100 01/22/21 10:13 73 110/54 01/22/21 10:11 80 100 01/22/21 10:06 124 H 100 01/22/21 10:01 102 H 100 01/22/21 09:56 81 113/61 100 01/22/21 09:54 103 H 109/61 01/22/21 09:52 113 H 109/61 01/22/21 09:51 123 H 100 01/22/21 09:50 86 113/61 01/22/21 09:48 88 108/58 01/22/21 09:46 74 100 01/22/21 09:44 78 108/65 01/22/21 09:42 87 108/63 01/22/21 09:41 85 100 01/22/21 09:40 176 H 113/55 01/22/21 09:38 82 109/57 01/22/21 09:36 73 112/61 100 01/22/21 09:35 90 112/54 01/22/21 09:32 89 129/85 01/22/21 09:31 77 100 01/22/21 09:30 71 115/66 01/22/21 09:28 65 109/63 01/22/21 09:26 62 100/57 100 01/22/21 09:24 73 111/65 01/22/21 09:22 79 107/74 01/22/21 09:21 78 100 01/22/21 09:20 75 108/66 01/22/21 09:18 67 102/60 01/22/21 09:16 74 106/65 100 01/22/21 09:14 67 106/72 01/22/21 09:12 65 106/69 01/22/21 09:11 64 100 01/22/21 09:10 64 106/71 01/22/21 09:08 75 112/58 01/22/21 09:06 75 102/47 100 01/22/21 09:04 68 108/63 01/22/21 09:02 65 103/59 01/22/21 09:01 70 100 01/22/21 09:00 68 100/57 01/22/21 08:58 71 108/66 01/22/21 08:56 66 111/68 99 01/22/21 08:54 76 105/56 01/22/21 08:52 74 110/56 01/22/21 08:51 73 99 01/22/21 08:50 71 105/58 01/22/21 08:48 72 107/58 01/22/21 08:46 61 110/58 97 01/22/21 08:44 71 107/57 01/22/21 08:42 74 112/55 01/22/21 08:41 72 97 01/22/21 08:40 74 111/55 01/22/21 08:38 77 126/71 01/22/21 08:36 75 109/64 98 01/22/21 08:34 72 112/66 01/22/21 08:32 74 109/62 01/22/21 08:31 71 97 01/22/21 08:30 70 104/59 01/22/21 08:28 79 107/59 01/22/21 08:26 69 105/55 97 01/22/21 08:24 71 120/59 01/22/21 08:22 71 124/74 01/22/21 08:21 70 97 01/22/21 08:20 70 111/69 01/22/21 08:18 69 113/63 01/22/21 08:17 78 131/63 01/22/21 08:16 77 98 01/22/21 08:14 79 130/62 01/22/21 08:13 73 132/63 01/22/21 08:11 82 99 01/22/21 08:10 86 124/56 01/22/21 08:08 81 124/62 01/22/21 08:06 103 H 98 01/22/21 08:05 62 82 L 01/22/21 08:00 106 H 98 01/22/21 07:58 96 H 125/60 01/22/21 07:55 101 H 98 01/22/21 07:50 103 H 98 01/22/21 07:45 108 H 99 01/22/21 07:40 86 97 01/22/21 07:35 102 H 98 01/22/21 07:30 104 H 98 01/22/21 07:25 102 H 100 01/22/21 07:20 72 98 01/22/21 07:15 83 98 01/22/21 07:10 103 H 98 01/22/21 07:05 87 98 01/22/21 07:01 88 92 01/22/21 07:00 76 96 01/22/21 06:55 94 H 99 01/22/21 06:50 109 H 100 01/22/21 06:45 108 H 98 01/22/21 06:40 82 98 01/22/21 06:39 52 L 78 L 01/22/21 06:35 87 100 01/22/21 06:30 66 98 01/22/21 06:25 71 98 01/22/21 06:20 83 97 Intake and Output 01/22/21 01/22/21 01/23/21 15:59 23:59 07:59 Intake Total 1000 450 300 Output Total 600 2800 1000 Balance 400 -2350 -700 Intake: IV 1000 50 ANCEF/NS 1 GM/50 ML 1 gm 50 In 50 ml @ 100 mls/hr IV Q8H [facility] Rx#:[id number] Oral 400 Intake, Free Water 300 Output: Urine 600 2800 1000 Indwelling Catheter 50 2400 Uretheral (Bar) 400 600 Void 400 Other: Total, Intake Amount 200 Total, Output Amount 50 200 400 # Voids Void 1 - Exam Cardiovascular: Present: Regular rate, No murmurs Lungs: Present: Clear to auscultation Abdomen: Present: normal appearance, soft, normal bowel sounds. Absent: distention, tenderness, guarding, rigidity Uterus: Present: normal, firm, fundal height below umbilicus. Absent: b ogginess, tenderness Extremities: Present: normal. Absent: tenderness, edema Incision: Present: normal, dry, dressed - Labs Labs: Abnormal lab results 01/22/21 Range/Units 11:16 ABG pH 7.266 L (7.320-7.450) POC ABG pCO2 50.1 H (32.0-48.0) mmHg POC ABG pO2 19.0 L (83-108) mmHg ABG Oxyhemoglobin 32.5 L (94-98) ABG Sodium 132.3 L (136.0-145.0) mmol/L Arterial Blood Ionized Calcium 5.5 H (4.6-5.3) mg/dL
[2021-01-23 07:33] LABS: Hematocrit 26.7 % (30.3-42.9); Hemoglobin 8.8 gm/dl (10.1-14.3); Mean Corpuscular HGB Conc 33 % (30-34); Mean Corpuscular Volume 92 fl (79-97); Platelet Count 237 K/mm3 (140-440); Red Cell Distribution Width 15.5 % (13.2-15.2)
[2021-01-23 08:43] LABS: Monocytes % (Auto) 4.8 % (0.0-7.3)
[2021-01-23 10:02] LABS: Total Cells Counted 100
[2021-01-23 10:04] LABS: Burr Cells Few; Platelet Estimate Consistent w Auto; Tear Drop Cells Few
--- NOTE | 2021-01-23 13:09 | Consultation ---
History of Present Illness - Reason for Consult Consult date: 01/23/21 Reason for consult: hx of depression/anxiety - History of Present Psychiatric Illness Tamara Sagastume is a 25y/o female patient who was admitted for childbirth. During my assessment of the patient, she is lying in bed with her in her arms. The baby's father is at bedside. The father was asked to step out while I speak to Tamara in private, but she says "he can hear everything." The patient says she has a history of depression and anxiety. She says but lately it's been mostly anxiety. She says "this has been a good and I haven't been bothered with depression." The patient says she's been managing her anxiety by coping skills taught to her by her therapist. She says she has a good support system, she writes a lot and prays a lot. She says these help to keep her menta lly stable. She denies any SI/HI or any fear of endangerment for herself or anybody else. She also denies hallucinations of any kind. The patient says she plans to start back seeing her therapist soon. She denies being on any psychiatric medications and states she "doesn't need any meds right now. I use my coping skills." PAST PSYCHIATRIC HISTORY Diagnoses: depression, anxiety Suicide attempts or Self-harm behavior: Yes Prior psychiatric hospitalizations: Yes Substance Abuse history: Denies Previous psychiatric medications tried: Denies Outpatient treatment: Denies PAST MEDICAL HISTORY: None reported Family Psychiatric History: None reported or documented SOCIAL HISTORY Marital Status: Single Living Arrangements: with children and father Employment Status: Employed Access to guns/weapons: Denies Education: 1 year of college History of Abuse: Denies Legal History: None reported REVIEW OF SYSTEMS Constitutional: Negative for weight loss ENT: Negative for stridor Respiratory: Negative for cough or hemoptysis All other systems reviewed and are negative MENTAL STATUS EXAMINATION General Appearance and Behavior: Age appropriate, good hygiene, not wearing appropriate clothes, good eye contact, calm, cooperative and polite Cooperation: cooperative Psychomotor Behavior: Psychomotor normal Mood: fine Affect and affective range: Euthymic, smiling Thought Process: Goal directed Thought Content: optimism Speech: normal rate and volume Suicidal Ideation: Denies Homicidal Ideation: Denies Hallucinations: Denies Delusions: None elicited Impulse Control: Normal Insight and Judgment: Normal Memory: Normal Attention: Normal Orientation: A/o x 3 Assessment and Plan (1) Hx of Depression and GRICEL Treatment Plan No medications at this time Risks, benefits and alternatives of medications discussed with the patient, questions answered and consent obtained from patient. PSYCHOTHERAPY: Supportive psychotherapy provided MEDICAL: Per primary team DELIRIUM PRECAUTIONS: Please re-orient patient frequently, keep lights on during the day, and minimize benzodiazepines and opiates as these medications could worsen patient's confusion. 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 LEGAL STATUS: voluntary FOLLOW-UP: Will sign off Thank you for the consult. Please contact with any questions and/or concerns Case discussed with Dr. Cruz who agrees with current disposition Medications and Allergies Allergies Allergy/AdvReac Type Severity Reaction Status Date / Time levetiracetam [From Keppra] AdvReac Unknown Seizure Verified 01/22/21 20:02 onion AdvReac Itching Verified 01/03/21 18:15 pineapple AdvReac Itching Verified 01/03/21 18:15 Home Medications Medication Instructions Recorded Confirmed Last Taken Type Docusate Sodium [Colace CAP] 100 mg PO BID PRN #20 capsule 06/02/19 01/22/21 Unknown Rx levETIRAcetam [Keppra TAB] 750 mg PO BID #60 tablet 06/02/19 01/22/21 Unknown Rx oxyCODONE /ACETAMINOPHEN [Percocet 1 tab PO Q4HR 21 Days #30 tab 01/22/21 Unknown Rx 5/325] Active Meds: Active Medications Ferrous Sulfate (Ferrous Sulfate 325 Mg Tab) 325 mg PO QDAY TORRIE Oxytocin/Sodium Chloride (Pitocin/Ns 30 Unit/500ml) 30 units in 500 mls @ 2 mls/hr IV TITR TORRIE; Protocol Oxytocin/Sodium Chloride (Pitocin/Ns 30 Unit/500ml) 30 units in 500 mls @ 40 mls/hr IV TITR TORRIE; Protocol Ibuprofen (Ibuprofen 800 Mg Tab) 800 mg PO Q6H PRN PRN Reason: Pain, Mild (1-3) Last Admin: 01/22/21 22:08 Dose: 800 mg Documented by: Magnesium Hydroxide (Magnesium Hydroxide (Mom) Oral Liqd Udc) 30 ml PO QHS PRN PRN Reason: Constip Unrelieved By Senna Morphine Sulfate (Morphine 4 Mg/1 Ml Inj) 4 mg IV Q4H PRN PRN Reason: Pain , Severe (7-10) Last Admin: 01/22/21 16:40 Dose: 4 mg Documented by: Multi-Ingredient Ointment (Lanolin/Zinc/Dimethicone (Lansinoh) 7 Gm) 1 applic TP PRN PRN PRN Reason: dryness/cracking Naloxone HCl (Naloxone 0.4 Mg/1 Ml Inj) 0.1 mg IV Q2MIN PRN PRN Reason: Res Rate </= 8 or 02 SAT < 92% Ondansetron HCl (Ondansetron 4 Mg/2 Ml Inj) 4 mg IV Q8H PRN PRN Reason: Nausea And Vomiting Last Admin: 01/22/21 18:12 Dose: 4 mg Documented by: Oxycodone/Acetaminophen (Oxycodone /Acetaminophen 5-325mg Tab) 2 tab PO Q6H PRN PRN Reason: Pain, Moderate (4-6) Last Admin: 01/23/21 09:13 Dose: 2 tab Documented by: Simethicone (Simethicone 80 Mg Chew Tab) 80 mg PO Q6H PRN PRN Reason: Gas pain Sodium Chloride (Sodium Chloride 0.9% 10 Ml Flush Syringe) 10 ml IV PRN TORRIE Witch Katerina/Glycerin (Witch Katerina/ Glycerin Pad) 1 each TP PRN PRN PRN Reason: Hemorrhoids/cleansing/soothing Mental Status Exam - Vital signs Last Vital Signs Temp 98.4 F 01/23/21 12:00 Pulse 71 01/23/21 12:00 Resp 18 01/23/21 12:00 BP 113/67 01/23/21 12:00 Pulse Ox 100 01/23/21 12:00 Results Result Diagrams: 01/23/21 07:01 Abnormal lab results 01/23/21 Range/Units 07:01 WBC 20.7 H (4.5-11.0) K/mm3 RBC 2.90 L (3.65-5.03) M/mm3 Hgb 8.8 L (10.1-14.3) gm/dl Hct 26.7 L (30.3-42.9) % RDW 15.5 H (13.2-15.2) % [place] # (Auto) 1.0 H (0.0-0.8) K/mm3 Seg Neutrophils % 88.2 H (40.0-70.0) % Seg Neuts % (Manual) 86.0 H (40.0-70.0) % Lymphocytes % (Manual) 8.0 L (13.4-35.0) % Seg Neutrophils # 18.6 H (1.8-7.7) K/mm3 Seg Neutrophils # Man 17.8 H (1.8-7.7) K/mm3 Monocytes # (Manual) 1.2 H (0.0-0.8) K/mm3 All other labs normal.
[2021-01-23] MEDS: AMOXICILLIN/K CLAV 875/125MG TAB PO SCH ×2 (18:19→19:10)
[2021-01-23] MEDS: ZONISAMIDE 100 MG PO SCH (22:09)
[2021-01-24] MEDS: oxyCODONE /ACETAMINOPHEN 5-325MG TAB PO PRN ×2 (03:13→16:30)
[2021-01-24] MEDS: PANTOPRAZOLE 40 MG INJ IV SCH ×3 (05:07→21:57)
[2021-01-24] MEDS: AMOXICILLIN/K CLAV 875/125MG TAB PO SCH ×2 (05:12→18:12)
[2021-01-24 07:59] LABS: Basophils # (Auto) 0.1 K/mm3 (0.0-0.1); Basophils % (Auto) 0.6 % (0.0-1.8); Eosinophils # (Auto) 0.1 K/mm3 (0.0-0.4); Eosinophils % (Auto) 0.4 % (0.0-4.3); Hematocrit 26.1 % (30.3-42.9); Hemoglobin 8.5 gm/dl (10.1-14.3); Lymphocytes # (Auto) 4.5 K/mm3 (1.2-5.4); Lymphocytes % (Auto) 28.7 % (13.4-35.0); Mean Corpuscular HGB Conc 33 % (30-34); Mean Corpuscular Volume 92 fl (79-97); Monocytes # (Auto) 0.9 K/mm3 (0.0-0.8); Monocytes % (Auto) 5.9 % (0.0-7.3); Platelet Count 263 K/mm3 (140-440); Red Blood Count 2.84 M/mm3 (3.65-5.03); Red Cell Distribution Width 15.7 % (13.2-15.2)
--- NOTE | 2021-01-24 08:13 | Progress Note ---
Assessment and Plan POD#2 C/Section with leucocytosis resolving well 1. continue augmentin x4days 2. May have laxative of pt choice for constipation 3. Routine post op care 4. For discharge tomorrow Subjective Date of service: 01/24/21 Principal diagnosis: /postop day 2 S/P primary LTCS Interval history: pt has no complaints. Pain controlled with meds. pt is voiding and passing flatus and tolerating diet. pt has not had a BM and would like med for same. Pt is breast feeding. Objective - Constitutional Vitals: Vital Signs - 12hr 01/24/21 01/24/21 00:27 03:13 Temperature 98.3 F Pulse Rate 75 Respiratory 18 18 Rate Blood Pressure 101/45 O2 Sat by Pulse 100 Oximetry General appearance: Present: no acute distress - Neck Neck: normal ROM - Breasts Breasts: normal - Cardiovascular Rhythm: regular Extremities: No edema - Gastrointestinal General gastrointestinal: Present: soft, non-tender, other (Incision with dressing C/D/I and when same removed steristips in place with old blood stain) - Genitourinary Female genitourinary: other (Fundus, firm, non-tender 2cm below the umbilicus) - Neurologic Neurologic: moves all extremities - Psychiatric Psychiatric: cooperative - Labs CBC & Chem 7: 01/24/21 07:24 Labs: Abnormal lab results 01/23/21 01/24/21 Range/Units 07:01 07:24 WBC 20.7 H 15.6 H (4.5-11.0) K/mm3 RBC 2.90 L 2.84 L (3.65-5.03) M/mm3 Hgb 8.8 L 8.5 L (10.1-14.3) gm/dl Hct 26.7 L 26.1 L (30.3-42.9) % RDW 15.5 H 15.7 H (13.2-15.2) % [place] # (Auto) 1.0 H 0.9 H (0.0-0.8) K/mm3 Seg Neutrophils % 88.2 H (40.0-70.0) % Seg Neuts % (Manual) 86.0 H (40.0-70.0) % Lymphocytes % (Manual) 8.0 L (13.4-35.0) % Seg Neutrophils # 18.6 H 10.1 H (1.8-7.7) K/mm3 Seg Neutrophils # Man 17.8 H (1.8-7.7) K/mm3 Monocytes # (Manual) 1.2 H (0.0-0.8) K/mm3 Medications & Allergies - Medications Allergies/Adverse Reactions: Allergies levetiracetam [From Keppra] Adverse Reaction (Unknown, Verified 01/22/21 20:02) Seizure onion Adverse Reaction (Verified 01/03/21 18:15) Itching pineapple Adverse Reaction (Verified 01/03/21 18:15) Itching Home Medications: Home Medications Medication Instructions Recorded Confirmed Last Taken Type Docusate Sodium [Colace CAP] 100 mg PO BID PRN #20 capsule 06/02/19 01/22/21 Unknown Rx levETIRAcetam [Keppra TAB] 750 mg PO BID #60 tablet 06/02/19 01/22/21 Unknown Rx oxyCODONE /ACETAMINOPHEN [Percocet 1 tab PO Q4HR 21 Days #30 tab 01/22/21 Unknown Rx 5/325] Active Medications: Generic Name Dose Route Start Last Admin Trade Name Freq PRN Reason Stop Dose Admin Amoxicillin/Clavulanate Potassium 1 each 01/23/21 18:00 01/24/21 05:12 Amoxicillin/K Clav 875/125mg Tab PO 1 each Q12H TORRIE Administration Protocol Ferrous Sulfate 325 mg 01/23/21 10:00 Ferrous Sulfate 325 Mg Tab PO QDAY TORRIE Oxytocin/Sodium Chloride 30 units in 500 mls @ 2 mls/hr 01/22/21 02:00 Pitocin/Ns 30 Unit/500ml IV TITR TORRIE Protocol Oxytocin/Sodium Chloride 30 units in 500 mls @ 40 mls/hr 01/22/21 14:49 Pitocin/Ns 30 Unit/500ml IV TITR TORRIE Protocol Ibuprofen 800 mg 01/22/21 14:49 01/22/21 22:08 Ibuprofen 800 Mg Tab PO 800 mg Q6H PRN Administration Pain, Mild (1-3) Magnesium Hydroxide 30 ml 01/22/21 14:49 Magnesium Hydroxide (Mom) Oral Liqd Udc PO QHS PRN Constip Unrelieved By Senna Miscellaneous Medication 100 mg 01/23/21 22:00 01/23/21 22:09 Zonisamide PO 100 mg QHS TORRIE Administration Morphine Sulfate 4 mg 01/22/21 14:49 01/22/21 16:40 Morphine 4 Mg/1 Ml Inj IV 4 mg Q4H PRN Administration Pain , Severe (7-10) Multi-Ingredient Ointment 1 applic 01/22/21 14:49 Lanolin/Zinc/Dimethicone (Lansinoh) 7 Gm TP PRN PRN dryness/cracking Naloxone HCl 0.1 mg 01/22/21 14:49 Naloxone 0.4 Mg/1 Ml Inj IV Q2MIN PRN Res Rate </= 8 or 02 SAT < 92% Ondansetron HCl 4 mg 01/22/21 14:49 01/22/21 18:12 Ondansetron 4 Mg/2 Ml Inj IV 4 mg Q8H PRN Administration Nausea And Vomiting Oxycodone/Acetaminophen 2 tab 01/22/21 14:49 01/24/21 03:13 Oxycodone /Acetaminophen 5-325mg Tab PO 2 tab Q6H PRN Administration Pain, Moderate (4-6) Pantoprazole Sodium 40 mg 01/23/21 22:00 01/24/21 05:07 Pantoprazole 40 Mg Inj IV Not Given BID TORRIE Simethicone 80 mg 01/22/21 14:49 01/23/21 17:36 Simethicone 80 Mg Chew Tab PO 80 mg Q6H PRN Administration Gas pain Sodium Chloride 10 ml 01/22/21 14:49 Sodium Chloride 0.9% 10 Ml Flush Syringe IV PRN TORRIE Witch Katerina/Glycerin 1 each 01/22/21 14:49 Witch Katerina/ Glycerin Pad TP PRN PRN Hemorrhoids/cleansing/soothing
[2021-01-24] MEDS: FERROUS SULFATE 325 MG TAB PO SCH (10:10)
[2021-01-24] MEDS: IBUPROFEN 800 MG TAB PO PRN (14:22)
[2021-01-24] MEDS: ZONISAMIDE 100 MG PO SCH (21:56)
[2021-01-25] MEDS: oxyCODONE /ACETAMINOPHEN 5-325MG TAB PO PRN (01:48)
[2021-01-25] MEDS: AMOXICILLIN/K CLAV 875/125MG TAB PO SCH (05:14)
--- NOTE | 2021-01-25 06:50 | Progress Note ---
Assessment and Plan A: /postop day 3 S/P primary low transverse section. Anemia, on oral iron supplementation. Anxiety and depression, seen and signed off on by psych. Seizure disorder, on home medication. P: Discharge patient home today. Discussed with patient /postop discharge instructions and warning signs. Care of incision and activity restrictions discussed with patient. Advised patient to continue taking her vitamins and iron supplements at home. Advised pt. to continue taking her home seizure medications. Advised patient to avoid intercourse, lifting, housework, stair climbing, driving. Depression warning signs discussed. Advised patient to follow up at [facility] in 1 week for incision check. Patient voiced understanding of all instructions. Subjective - Subjective Date of service: 01/25/21 Principal diagnosis: /postop day 3 S/P primary LTCS Interval history: Passing gas, tolerating regular food, ambulating without difficulty, voiding without difficulty. Patient requests discharge home today. Patient seen by psych 01/23/21. Taking home medications for her seizure disorder. Patient reports: appetite normal, voiding normally, pain well controlled, flatus, ambulating normally, no dizzy ambulation, no nauseated [place]: doing well Objective - Vital Signs Latest vital signs: Vital Signs Temp Pulse Resp BP Pulse Ox 01/25/21 02:48 18 01/25/21 01:55 98.2 F 86 18 97/43 96 01/25/21 01:48 18 01/24/21 17:01 98.3 F 92 H 18 104/54 98 01/24/21 08:43 98.4 F 84 18 111/47 98 Intake and Output 01/24/21 01/24/21 01/25/21 15:59 23:59 07:59 Intake Total 240 240 Balance 240 240 Intake: Oral 240 240 Other: Total, Intake Amount 240 240 # Voids Indwelling Catheter 1 Void 1 1 1 - Exam Cardiovascular: Present: Regular rate Lungs: Present: Clear to auscultation Abdomen: Present: normal appearance, soft, normal bowel sounds. Absent: distention, tenderness, guarding, rigidity Uterus: Present: normal, firm, fundal height below umbilicus. Absent: bogginess, tenderness Extremities: Present: normal. Absent: tenderness, edema Incision: Present: normal, dry, intact - Labs Labs: Abnormal lab results 01/24/21 Range/Units 07:24 WBC 15.6 H (4.5-11.0) K/mm3 RBC 2.84 L (3.65-5.03) M/mm3 Hgb 8.5 L (10.1-14.3) gm/dl Hct 26.1 L (30.3-42.9) % RDW 15.7 H (13.2-15.2) % [place] # (Auto) 0.9 H (0.0-0.8) K/mm3 Seg Neutrophils # 10.1 H (1.8-7.7) K/mm3
--- NOTE | 2021-01-25 07:10 | Discharge Summary ---
Providers - Providers Date of Admission: 01/22/21 01:52 Date of discharge: 01/25/21 Attending physician: KYLIE ZARAGOZA MD 01/22/21 01:55 psychiatry consult [Consult to Mental Health] [CONS] Routine Reason For Exam: see r/t hx of depression and anxiety Primary care physician: KYLIE ZARAGOZA MD Hospitalization Reason for admission: active labor Delivery: Procedure: primary low transverse Incision: normal, dry, intact Other procedures: none complications: none Discharge diagnosis: IUP at term delivered [place] baby: male Pertinent studies: Labs Hospital course: Stable hospital course. Condition at discharge: Good Disposition: DC-01 TO HOME OR SELFCARE - Discharge Diagnoses (1) Term delivered Status: Acute (2) Anemia Status: Acute Plan - Discharge Medications Prescriptions: Amoxicillin/Potassium Clav [Augmentin 875-125 Tablet] 1 each PO BID 5 Days #10 tablet Ibuprofen [Motrin] 800 mg PO Q8HR PRN 21 Days #30 tablet PRN Reason: Pain, Moderate (4-6) oxyCODONE /ACETAMINOPHEN [Percocet 5/325] 1 tab PO Q4HR 21 Days #30 tab - Provider Discharge Summary Activity: routine, no sex for 6 weeks, no heavy lifting 4 weeks, no strenuous exercise Diet: routine Instructions: routine Additional instructions: Continue taking your vitamins at home. Continue taking your home seizure medications and follow up with your neurologist. Follow up at [facility] in 1 week for incision check. Call your doctor immediately for: * Fever > 100.5 * Heavy vaginal bleeding ( >1 pad per hour) * Severe persistent headache * Shortness of breath * Reddened, hot, painful area to leg or breast * Drainage or odor from incision. * Keep incision clean and dry at all times and follow doctor's instructions rega rding bathing/showering - Follow up plan Follow up: KYLIE ZARAGOZA MD [Primary Care Provider] - 7 Days
[2021-01-25] MEDS: FERROUS SULFATE 325 MG TAB PO SCH (10:39)
[2021-01-25] MEDS: IBUPROFEN 800 MG TAB PO PRN (10:39)
[2021-01-25 18:39] VITALS: BP 116/58
== END 2021-01-25 12:50 | disposition home or self-care (01) | DRG 765 ==
LOC: TRG 23:54 → APU 01-22 00:03 → TRG 01-22 01:48 → LD 01-22 01:52 → OB 01-22 14:11
PROVIDERS: ADMIT Obstetrics & Gynecology; ATTEND Obstetrics & Gynecology
PROC: 10D00Z1 Extraction of Products of Conception, Low, Open Approach (ICD-10-PCS; principal; 2021-01-22)
PROC: 10H07YZ Insertion of Other Device into Products of Conception, Via Natural or Artificial Opening (ICD-10-PCS; 2021-01-22)
PROC: 4A033R1 Measurement of Arterial Saturation, Peripheral, Percutaneous Approach (ICD-10-PCS; 2021-01-22)
DX: O76 Abnormality in fetal heart rate and rhythm complicating labor and delivery (principal); D62 Acute posthemorrhagic anemia; O99.354 Diseases of the nervous system complicating childbirth; Z20.822 Contact with and (suspected) exposure to COVID-19; O99.344 Other mental disorders complicating childbirth; D72.829 Elevated white blood cell count, unspecified; O99.02 Anemia complicating childbirth; F32.9 Major depressive disorder, single episode, unspecified; O99.214 Obesity complicating childbirth; G40.909 Epilepsy, unspecified, not intractable, without status epilepticus; F41.1 Generalized anxiety disorder; M41.9 Scoliosis, unspecified; O75.89 Other specified complications of labor and delivery; Z3A.40 40 weeks gestation of pregnancy; Z37.0 Single live birth; Z82.49 Family history of ischemic heart disease and other diseases of the circulatory system; Z84.89 Family history of other specified conditions; Z82.5 Family history of asthma and other chronic lower respiratory diseases; Z91.018 Allergy to other foods; Z79.899 Other long term (current) drug therapy; Z88.8 Allergy status to other drugs, medicaments and biological substances
CPT/HCPCS: 36415; 59025; 82805; 85007; 85025; 85027; 86850; 86900; 86901; G0378; J0595; J0690; J1100; J1885; J2270; J2405; J2590; J3010; J7120; U0003